=== PATIENT | male | born 1980 | race Caucasian/White ===

== ENCOUNTER 2021-10-19 06:58 | Emergency (ER) | payer MEDICARE, MEDICAID, SELFPAY ==
[2021-10-19 06:59] VITALS: BP 142/83; PULSE 90; RESP 18; TEMP 36.5; O2SAT 96; BMI 25.7
--- NOTE | 2021-10-19 07:43 | ED_ITS ---
HPI - Nausea/Vomiting/Diarrhea General Chief complaint: Nausea/Vomiting/Diarrhea Stated complaint: Vomiting Time Seen by Provider: 10/19/21 07:42 Source: patient Mode of arrival: ambulatory Limitations: no limitations History of Present Illness HPI Narrative: 41-year-old male came in for evaluation of nausea and vomiting. Symptoms started since yesterday after eating rice and chicken was served at the [employer] yesterday, patient's symptoms started about 30 minutes after eating the food patient not aware of anybody else got sick after eating the food, vomiting has been constant since yesterday, no fever, no diarrhea. Epigastric pain that is worsening with vomiting. Related Data Previous Rx's Medication Instructions Recorded omeprazole 20 mg capsule,delayed 20 mg PO BID 10 Days #20 cap 10/19/21 release ondansetron 4 mg disintegrating 4 mg PO Q8-12H PRN 4 Days #6 tab 10/19/21 tablet Allergies Allergy/AdvReac Type Severity Reaction Status Date / Time No Known Allergies [NKA] Allergy Mild NOT Unverified 02/28/20 15:28 APPLICABLE Review of Systems Review of Systems: All other systems are reviewed and are negative Constitutional: Reports as per HPI and Reports no additional constitutional complaints Eyes: Reports as per HPI and Reports no additional eye complaints Reports system reviewed and no additional complaints, except as documented Cardiovascular: Reports as per HPI and Reports no additional cardiovascular complaints Respiratory: Reports as per HPI and Reports no additional respiratory complaints Gastrointestinal: Reports as per HPI and Reports no additional gastrointestinal complaints Genitourinary: Reports no additional female genitourinary complaints Musculoskeletal: Reports no additional musculoskeletal complaints Skin/Breast: Reports system reviewed and no additional complaints, except as docu Psychiatric: Reports no additional psychiatric complaints Endocrine: Reports no additional endocrine complaints Hematologic/Lymphatic: Reports no additional hematologic/lymphatic complaints Allergic/Immunologic: Reports no additional allergic/immunologic complaints Reports system reviewed and no additional complaints, except as documented and Reports Abnormal speech present [facility] Past Medical History Medical History No known health problems Social History Social History Patient Tobacco Use Status: Never used Tobacco Use of substances other than those prescribed or required for medical reasons: No Advance Directives: Yes Advance Directives Information Provided: Yes Advance Directives on File: No Physical Exam Vital Signs: Vital Signs: Last Vital Signs Temp 98.5 F 10/19/21 11:16 Pulse 100 10/19/21 11:16 Resp 16 10/19/21 11:16 BP 138/77 10/19/21 11:16 Pulse Ox 97 10/19/21 11:16 BMI result Body Mass Index 25.7 Vital signs have been reviewed as appeared to be correct. Blood pressure normal. Heart rate normal. Respiration rate normal. Temperature normal. Oxygen saturation normal. Appearance: Alert. Oriented X3. No acute distress. Head: Normal external exam. Normocephalic. Atraumatic. No Sadler signs noted. No raccoon eyes noted Eyes: PERRLA. EOMI. Conjunctiva and sclera normal. Eyelids normal. ENT: TM's Normal. Pharynx normal. Uvula midline. Moist mucous membranes. No trismus noted. No drooling noted. No muffled voice noted. Neck: Normal inspection. Neck supple. FROM. No adenopathy. Thyroid Normal. No meningeal signs. No neck mass noted. CVS: Normal heart rate and rhythm. Heart sound normal. No murmurs noted. Pulses normal throughout. Respiratory: No respiratory distress. Painless inspiration. Breath sounds normal. No wheezes/rales/rhonchi noted. Chest nontender. No accessory muscle usage noted or decreased air movement noted. Abdomen: Soft, mild epigastric tenderness, no rebound tenderness, guarding. Bowel sounds normal in all 4 quadrants. No distention noted. No organomegaly noted. No visible injury noted. Back: No CVA tenderness. Full range of motion noted. Skin: Skin warm and dry. Normal skin color. Normal skin turgor. No rashes/lesions/lacerations noted. Extremities: No lower extremity edema. Extremities exhibit normal range of motion. Extremities nontender. Neuro: Oriented X 3. Cranial nerve exam: II-XII are grossly intact No motor deficit. No sensory deficit. Reflexes normal. Course Course Course Narrative: Assessment and plan. 41 years old male came in with nausea and vomiting after a food at [employer] today, no other sick contacts. Patient now has no nausea or vomiting, able to tolerate p.o. intake. Repeat abdominal exam shows no tenderness, no rebound tenderness. Slight leukocytosis likely secondary to food poisoning and vomiting. MDM - Nausea/Vomiting/Diarrhea Medical Records Attestation: I reviewed the patient's medical records. Lab Data Attestation: I reviewed the patient's lab results. Result diagrams: 10/19/21 08:07 10/19/21 08:07 Labs: Lab Results 10/19/21 10/19/21 10/19/21 Range/Units 08:07 08:07 11:32 WBC 12.3 H (4.8-10.8) X10*3/uL RBC 4.93 (4.60-5.80) X10*6/uL Hgb 15.6 (14.0-18.0) g/dl Hct 44.6 (42.0-52.0) % MCV 90.5 (80.0-98.0) fL MCH 31.6 (27.0-33.0) pg MCHC 35.0 (31.0-36.0) g/dl RDW 12.6 (11.0-16.0) % Plt Count 313 (160-400) X10*3/uL MPV 10.7 (9.4-12.4) fL Immature Gran % (Auto) 0.3 (0.0-0.4) % Neut % (Auto) 89.6 H (45-73) % Lymph % (Auto) 6.9 L (20-40) % [place] % (Auto) 3.0 (2-11) % Eos % (Auto) 0.0 (0-4) % Baso % (Auto) 0.2 (0-2) % Lymph # (Auto) 0.8 L (1.2-4.9) X10*3/uL [place] # (Auto) 0.4 (0.1-1.2) X10*3/uL Eos # (Auto) 0.0 (0.0-0.4) X10*3/uL Baso # (Auto) 0.0 (0.0-0.2) X10*3/uL Abs Immat Gran (auto) 0.04 H (0.00-0.03) X10*3/uL Absolute Neuts (auto) 11.0 H (2.0-8.3) x10*3/uL Absolute Nucleated RBC 0.000 (0.0-0.012) X10*3/uL Nucleated RBC % (auto) 0.0 (0.0-0.2) /100WBC Sodium 140 (135-145) mmol/L Potassium 4.5 (3.3-5.1) mmol/L Chloride 100 (96-108) mmol/L Carbon Dioxide 26 (22-29) mmol/L Anion Gap 19 (12-20) BUN 12 (9-16) mg/dL Creatinine 0.93 (0.5-1.4) mg/dL Estim Creat Clear Calc 86.6 Estimated GFR > 60 Random Glucose 138 H (60-115) mg/dL Calcium 10.5 H (8.4-10.2) mg/dL Total Bilirubin 0.7 (0.0-1.0) mg/dL Direct Bilirubin 0.2 (0.0-0.5) mg/dL AST 22 (5-37) U/L ALT 22 (0-40) U/L Alkaline Phosphatase 132 H (39-117) U/L Total Protein 8.6 H (6.5-8.0) g/dL Albumin 5.0 (3.5-5.0) g/dL Lipase 23 (8-78) U/L Urine Color YELLOW Urine Appearance CLEAR Urine pH 6.0 (5.0-8.0) Ur Specific [place] >= 1.030 H (1.005-1.025) Urine Protein 2+ H (NEG-TRACE) MG/DL Urine Glucose (UA) NEG (NEG) MG/DL Urine Ketones >=80 (NEG) MG/DL Urine Blood 1+ H (NEG) Urine Nitrite NEG (NEG) Ur Leukocyte Esterase NEG (NEG) Urine RBC 1-4 (0) /HPF Urine WBC 0 (0-4) /HPF Ur Squamous Epith Cells NONE /LPF Urine Bacteria NONE /LPF Urine Mucus 1+ /LPF Discharge Plan Discharge Clinical Impression: Food poisoning Patient Disposition: Home, Self-Care Instructions: Food Poisoning (ED) Prescriptions: New ondansetron 4 mg tablet,disintegrating 4 mg PO Q8-12H PRN (Reason: nausea and vomiting) 4 Days Qty: 6 0RF omeprazole 20 mg capsule,delayed release(DR/EC) 20 mg PO BID 10 Days Qty: 20 0RF Referrals: Physician,None [Primary Care Provider] -
[2021-10-19] MEDS: 0.9 % Sodium Chloride 1,000 ML 999 ML IV (08:10)
[2021-10-19 08:13] LABS: MANUAL DIFF FLAG NO
[2021-10-19] MEDS: Famotidine/PF 20 MG/2 ML VIAL IVPUSH (08:13)
[2021-10-19] MEDS: Magnesium Hydrox/Alum Hydrox 30 ML ORAL.SUSP PO (08:14)
[2021-10-19] MEDS: ondansetron HCL 4 MG/2 ML VIAL IVPUSH (08:14)
[2021-10-19 08:29] LABS: Basophils Percent Auto 0.2 % (0-2); Hematocrit 44.6 % (42.0-52.0); Hemoglobin 15.6 g/dl (14.0-18.0); Imm Gran Abs Auto 0.04 X10*3/uL (0.00-0.03); Imm Gran Pct Auto 0.3 % (0.0-0.4); Lymphocytes Absolute Auto 0.8 X10*3/uL (1.2-4.9); Lymphocytes Percent Auto 6.9 % (20-40); Mean Corpuscular Hemoglobin 31.6 pg (27.0-33.0); Mean Corpuscular Volume 90.5 fL (80.0-98.0); Mean Platelet Volume 10.7 fL (9.4-12.4); Monocytes Absolute Auto 0.4 X10*3/uL (0.1-1.2); Neutrophils Percent Auto 89.6 % (45-73); Platelet Count 313 X10*3/uL (160-400); Red Blood Count 4.93 X10*6/uL (4.60-5.80); Red Cell Distribution Width 12.6 % (11.0-16.0); White Blood Count 12.3 X10*3/uL (4.8-10.8)
[2021-10-19 08:40] LABS: Alanine Aminotransferase 22 U/L (0-40); Alkaline Phosphatase 132 U/L (39-117); Anion Gap 19 (12-20); Aspartate Amino Transferase 22 U/L (5-37); Bilirubin Direct 0.2 mg/dL (0.0-0.5); Bilirubin Total 0.7 mg/dL (0.0-1.0); Blood Urea Nitrogen 12 mg/dL (9-16); Calcium 10.5 mg/dL (8.4-10.2); Carbon Dioxide 26 mmol/L (22-29); Chloride 100 mmol/L (96-108); Creatinine Clr Calc Pharmacy 86.6; Estimated Glomerular Filt Rate > 60; Glucose Random 138 mg/dL (60-115); Lipase 23 U/L (8-78); Potassium 4.5 mmol/L (3.3-5.1); Sodium 140 mmol/L (135-145); Total Protein 8.6 g/dL (6.5-8.0)
--- NOTE | 2021-10-19 08:49 | PC.NURSE ---
pt has become agitated suddenly , at bedside explaining imaging he wants pt to have imaging as he was unresponsive on arrival. Pt is now alert and orientated and lucid. and wants to leave. He ripped out his IV and is wanting to leave, has clothing in black trash bag at bedside Phone given to him and he called his dad and he will be on his way. Pt is adamant about wanting to leave ama. Security and [employer] at bedside, pt requesting/given water.
[2021-10-19 11:16] VITALS: BP 138/77; PULSE 100; RESP 16; TEMP 36.9; O2SAT 97
[2021-10-19 11:39] LABS: Appearance Urine CLEAR; Color Urine YELLOW; Glucose Urine UA NEG (NEG); Leukocyte Esterase Urine NEG (NEG); Nitrite Urine NEG (NEG); Specific Gravity - Urine >= 1.030 (1.005-1.025); UACC Culture Trigger NO; Urine Blood 1+ (NEG); Urine Ketones >=80 MG/DL (NEG); Urine Protein 2+ MG/DL (NEG-TRACE)
[2021-10-19 11:54] LABS: WBC Urine 0 /HPF (0-4)
[2021-10-19 11:55] LABS: Mucus Urine 1+ /LPF
[2021-10-19 13:00] VITALS: BP 154/88; PULSE 70; RESP 18; TEMP 36.3; O2SAT 98
== END 2021-10-19 13:31 | disposition home or self-care (01) ==
PROVIDERS: Emergency Provider Emergency Medicine
DX: A05.9 Bacterial foodborne intoxication, unspecified (principal)
CPT/HCPCS: 36415; 80048; 80076; 81001; 83690; 85025; 96361; 96374; 96375; 99284; J2405

== ENCOUNTER 2021-10-20 14:17 | Emergency (ER) | payer MEDICARE, MEDICAID, SELFPAY ==
[2021-10-20 14:51] VITALS: BP 144/90; PULSE 78; RESP 18; TEMP 35.6; O2SAT 100; BMI 23.0
[2021-10-20 15:06] LABS: MANUAL DIFF FLAG NO
[2021-10-20 15:09] LABS: Basophils Percent Auto 0.3 % (0-2); Eosinophils Percent Auto 0.1 % (0-4); Hematocrit 44.9 % (42.0-52.0); Hemoglobin 15.5 g/dl (14.0-18.0); Imm Gran Abs Auto 0.04 X10*3/uL (0.00-0.03); Imm Gran Pct Auto 0.3 % (0.0-0.4); Lymphocytes Absolute Auto 1.3 X10*3/uL (1.2-4.9); Lymphocytes Percent Auto 11.6 % (20-40); Mean Corpuscular HGB Conc 34.5 g/dl (31.0-36.0); Mean Corpuscular Hemoglobin 31.6 pg (27.0-33.0); Mean Corpuscular Volume 91.4 fL (80.0-98.0); Mean Platelet Volume 10.3 fL (9.4-12.4); Monocytes Absolute Auto 0.5 X10*3/uL (0.1-1.2); Monocytes Percent Auto 4.5 % (2-11); Neutrophils Absolute Auto 9.5 x10*3/uL (2.0-8.3); Neutrophils Percent Auto 83.2 % (45-73); Platelet Count 303 X10*3/uL (160-400); Red Blood Count 4.91 X10*6/uL (4.60-5.80); Red Cell Distribution Width 12.6 % (11.0-16.0); White Blood Count 11.4 X10*3/uL (4.8-10.8)
[2021-10-20 15:24] LABS: Alanine Aminotransferase 27 U/L (0-40); Albumin Level 4.8 g/dL (3.5-5.0); Alkaline Phosphatase 121 U/L (39-117); Anion Gap 14 (12-20); Aspartate Amino Transferase 33 U/L (5-37); Bilirubin Direct 0.3 mg/dL (0.0-0.5); Bilirubin Total 0.7 mg/dL (0.0-1.0); Blood Urea Nitrogen 11 mg/dL (9-16); Carbon Dioxide 28 mmol/L (22-29); Chloride 102 mmol/L (96-108); Creatinine Clr Calc Pharmacy 66.7; Estimated Glomerular Filt Rate > 60; Glucose Random 172 mg/dL (60-115); Potassium 4.4 mmol/L (3.3-5.1); Sodium 140 mmol/L (135-145)
[2021-10-20 20:00] VITALS: BP 138/85; PULSE 72; RESP 16; O2SAT 98
--- NOTE | 2021-10-20 21:13 | ED.NAVMDI ---
HPI - Nausea/Vomiting/Diarrhea General Chief complaint: Nausea/Vomiting/Diarrhea Stated complaint: Vomiting Time Seen by Provider: 10/20/21 21:04 Source: patient Mode of arrival: ambulatory Limitations: no limitations History of Present Illness HPI Narrative: Patient comes to emergency room complaining of nausea and vomiting. Patient was seen here for the same reason. Today, when patient came to triage, patient was self inducing vomiting. Patient has fear chills, mild abdominal cramping, no diarrhea. Patient is known to have history of gastroparesis and cyclical vomiting. Related Data Previous Rx's Medication Instructions Recorded omeprazole 20 mg capsule,delayed 20 mg PO BID 10 Days #20 cap 10/19/21 release ondansetron 4 mg disintegrating 4 mg PO Q8-12H PRN 4 Days #6 tab 10/19/21 tablet metoclopramide HCl 5 mg tablet 5 mg PO DAILY PRN #10 tab 10/20/21 (Reglan) Allergies Allergy/AdvReac Type Severity Reaction Status Date / Time No Known Allergies [NKA] Allergy Mild NOT Unverified 02/28/20 15:28 APPLICABLE Review of Systems Review of Systems: Constitutional : No Weight loss, No Fever, No Chills, No Night Sweats, No Fatigue, No Malaise ENT/Mouth : No Hearing loss, No Ear Pain, No Nasal Congestion, No Sinus Pain, No Hoarseness, No sore throat, No Rhinorrhea, No Swallowing Difficulty Eyes: No Eye Pain, No Swelling, No Redness, No Foreign Body, No Discharge, No Vision Changes Cardiovascular : No Chest Pain, No SOB, No Dyspnea on Exertion, No Orthopnea, No Edema, No Palpitations Respiratory : No Cough, No Sputum, No Wheezing, No Smoke Exposure, No Dyspnea Gastrointestinal : Complaining of nausea and vomiting, No Diarrhea, No Constipation, No abdominal Pain, No Hematochezia, No Melena Genitourinary : no irregular bleeding, No Dysuria, No Urinary Frequency, No Hematuria, No Urinary Incontinence, No Urgency, No Flank Pain, No Urinary Flow Changes, No Hesitancy Musculoskeletal : No joint pain, No Myalgias, No Joint Swelling Skin : No Skin Lesions, No rash Neuro : No Weakness, No Numbness, No Paresthesias, No Loss of Consciousness, No Dizziness, No Headache Psych : No Anxiety/Panic, No Depression, No SI/HI/AH/VH, No Social Issues, Heme/Lymph: No Bruising, No Bleeding,No Lymphadenopathy Endocrine : No Polyuria, No Polydipsia, No Temperature Intolerance [facility] Past Medical History Medical History (Updated 10/20/21 @ 23:06 by Regla Cotto MD) Cyclical vomiting Gastroparesis No known health problems Social History Social History Patient Tobacco Use Status: Never used Tobacco Advance Directives: No Advance Directives Information Provided: No Physical Exam Vital Signs: Vital Signs: Last Vital Signs Temp 98.3 F 10/20/21 21:57 Pulse 75 10/20/21 21:57 Resp 18 10/20/21 21:57 BP 138/85 10/20/21 21:57 Pulse Ox 99 10/20/21 21:57 BMI result Body Mass Index 23.0 Const: Other: Appearance: Alert. Oriented X3. No acute distress. Well-appearing Eyes: Pupils equal, round and reactive to light. ENT: Pharynx normal. Neck: Normal inspection. Neck supple. No lymph nodes noted. No crepitus CVS: Normal heart rate and rhythm. Pulses normal. Normal S1 and S2 Respiratory: No respiratory distress. Breath sounds normal. No Wheezing. No rales Abdomen: Soft and nontender. No rigidity. No distention. Skin: Skin warm and dry. Normal skin color. Normal skin turgor. Extremities: No lower extremity edema. No Lacerations. No Rash Neuro: Oriented X 3. No motor deficit. No sensory deficit. Moving all extremities. No slurred speech. CN 2 through 12 grossly intact Psych: calm, cooperative, normal affect Course Course Course Narrative: Patient's white blood cell count is improving from yesterday, glucose 172. Patient getting IV fluids, Phenergan, Pepcid Patient has not had any further episodes of vomiting, resting comfortably MDM - Nausea/Vomiting/Diarrhea Lab Data Result diagrams: 10/20/21 15:02 10/20/21 15:02 Labs: Lab Results 10/20/21 10/20/21 Range/Units 15:02 15:02 WBC 11.4 H (4.8-10.8) X10*3/uL RBC 4.91 (4.60-5.80) X10*6/uL Hgb 15.5 (14.0-18.0) g/dl Hct 44.9 (42.0-52.0) % MCV 91.4 (80.0-98.0) fL MCH 31.6 (27.0-33.0) pg MCHC 34.5 (31.0-36.0) g/dl RDW 12.6 (11.0-16.0) % Plt Count 303 (160-400) X10*3/uL MPV 10.3 (9.4-12.4) fL Immature Gran % (Auto) 0.3 (0.0-0.4) % Neut % (Auto) 83.2 H (45-73) % Lymph % (Auto) 11.6 L (20-40) % [place] % (Auto) 4.5 (2-11) % Eos % (Auto) 0.1 (0-4) % Baso % (Auto) 0.3 (0-2) % Lymph # (Auto) 1.3 (1.2-4.9) X10*3/uL [place] # (Auto) 0.5 (0.1-1.2) X10*3/uL Eos # (Auto) 0.0 (0.0-0.4) X10*3/uL Baso # (Auto) 0.0 (0.0-0.2) X10*3/uL Abs Immat Gran (auto) 0.04 H (0.00-0.03) X10*3/uL Absolute Neuts (auto) 9.5 H (2.0-8.3) x10*3/uL Absolute Nucleated RBC 0.000 (0.0-0.012) X10*3/uL Nucleated RBC % (auto) 0.0 (0.0-0.2) /100WBC Sodium 140 (135-145) mmol/L Potassium 4.4 (3.3-5.1) mmol/L Chloride 102 (96-108) mmol/L Carbon Dioxide 28 (22-29) mmol/L Anion Gap 14 (12-20) BUN 11 (9-16) mg/dL Creatinine 1.16 (0.5-1.4) mg/dL Estim Creat Clear Calc 66.7 Estimated GFR > 60 Random Glucose 172 H (60-115) mg/dL Calcium 10.0 (8.4-10.2) mg/dL Total Bilirubin 0.7 (0.0-1.0) mg/dL Direct Bilirubin 0.3 (0.0-0.5) mg/dL AST 33 D (5-37) U/L ALT 27 (0-40) U/L Alkaline Phosphatase 121 H (39-117) U/L Total Protein 8.0 (6.5-8.0) g/dL Albumin 4.8 (3.5-5.0) g/dL Discharge Plan Discharge Clinical Impression: Vomiting Patient Disposition: Home, Self-Care Instructions: Acute Nausea and Vomiting (ED) Additional Instructions: Please follow-up with your primary care physician tomorrow. If you have any worsening or new symptoms, please return to the emergency room or call 911 Prescriptions: New metoclopramide HCl [Reglan] 5 mg tablet 5 mg PO DAILY PRN (Reason: nausea and vomiting) Qty: 10 0RF No Action ondansetron 4 mg tablet,disintegrating 4 mg PO Q8-12H PRN (Reason: nausea and vomiting) 4 Days Qty: 6 0RF omeprazole 20 mg capsule,delayed release(DR/EC) 20 mg PO BID 10 Days Qty: 20 0RF
[2021-10-20 21:57] VITALS: BP 138/85; PULSE 75; RESP 18; TEMP 36.8; O2SAT 99
[2021-10-20] MEDS: 0.9 % Sodium Chloride 1,000 ML 999 ML IVCONT (22:01)
[2021-10-20] MEDS: Famotidine/PF 20 MG/2 ML VIAL IVPUSH (22:17)
[2021-10-20 22:58] LABS: Appearance Urine CLOUDY; Color Urine YELLOW; Glucose Urine UA NEG (NEG); Leukocyte Esterase Urine NEG (NEG); Nitrite Urine NEG (NEG); Urine Blood NEG (NEG); Urine Ketones 5 MG/DL (NEG); Urine Protein TRACE MG/DL (NEG-TRACE)
[2021-10-20 23:14] LABS: Amphetamine Screen Urine Not Detected (Not Detect); Barbiturates, Urine Not Detected (Not Detect); Benzodiazepines Screen Urine Not Detected (Not Detect); Cannabinoid Screen Urine POSITIVE (Not Detect); Cocaine Screen Urine Not Detected (Not Detect); Fentanyl, urine Not Detected (Not Detect); Opiate Screen Urine Not Detected (Not Detect); Phencyclidine Screen Urine Not Detected (Not Detect)
[2021-10-20 23:32] VITALS: BP 138/78; PULSE 71; RESP 16; O2SAT 99
== END 2021-10-20 23:33 | disposition home or self-care (01) ==
PROVIDERS: Emergency Provider Emergency Medicine
DX: R11.2 Nausea with vomiting, unspecified (principal); R19.7 Diarrhea, unspecified; Z79.899 Other long term (current) drug therapy
CPT/HCPCS: 36415; 80053; 80307; 81003; 82248; 85025; 96361; 96374; 96375; 99284; J2550

== ENCOUNTER 2021-11-11 21:27 | Emergency (ER) | payer MEDICARE, MEDICAID, SELFPAY ==
[2021-11-11 21:36] VITALS: BP 147/91; PULSE 98; RESP 18; TEMP 35.9; O2SAT 100; BMI 27.4
[2021-11-11] MEDS: Ondansetron ODT 4 MG TAB.RAPDIS TRANSLINGU (21:44)
[2021-11-11 22:07] LABS: Basophils Percent Auto 0.2 % (0-2); Eosinophils Percent Auto 0.1 % (0-4); Hematocrit 45.2 % (42.0-52.0); Hemoglobin 15.7 g/dl (14.0-18.0); Imm Gran Abs Auto 0.06 X10*3/uL (0.00-0.03); Imm Gran Pct Auto 0.4 % (0.0-0.4); Lymphocytes Absolute Auto 0.9 X10*3/uL (1.2-4.9); Lymphocytes Percent Auto 5.3 % (20-40); MANUAL DIFF FLAG SCAN; Mean Corpuscular HGB Conc 34.7 g/dl (31.0-36.0); Mean Corpuscular Hemoglobin 31.5 pg (27.0-33.0); Mean Corpuscular Volume 90.8 fL (80.0-98.0); Mean Platelet Volume 10.3 fL (9.4-12.4); Monocytes Absolute Auto 0.5 X10*3/uL (0.1-1.2); Monocytes Percent Auto 2.7 % (2-11); Neutrophils Absolute Auto 15.4 x10*3/uL (2.0-8.3); Neutrophils Percent Auto 91.3 % (45-73); Platelet Count 296 X10*3/uL (160-400); Red Blood Count 4.98 X10*6/uL (4.60-5.80); Red Cell Distribution Width 12.6 % (11.0-16.0); SCAN SMEAR FLAG 1; White Blood Count 16.9 X10*3/uL (4.8-10.8)
[2021-11-11 22:20] VITALS: BP 178/119; PULSE 91; O2SAT 98
[2021-11-11 22:22] LABS: Ethanol < 10 mg/dL
[2021-11-11 22:26] LABS: SLIDE REVIEW VERIFIED
[2021-11-11 22:35] LABS: Alanine Aminotransferase 24 U/L (0-40); Albumin Level 5.2 g/dL (3.5-5.0); Alkaline Phosphatase 133 U/L (39-117); Anion Gap 16 (12-20); Aspartate Amino Transferase 19 U/L (5-37); Bilirubin Direct 0.2 mg/dL (0.0-0.5); Bilirubin Total 0.6 mg/dL (0.0-1.0); Blood Urea Nitrogen 10 mg/dL (9-16); Calcium 10.8 mg/dL (8.4-10.2); Carbon Dioxide 28 mmol/L (22-29); Chloride 105 mmol/L (96-108); Creatinine Clr Calc Pharmacy 84.4; Estimated Glomerular Filt Rate > 60; Glucose Random 169 mg/dL (60-115); Potassium 4.3 mmol/L (3.3-5.1); Sodium 145 mmol/L (135-145); Total Protein 8.8 g/dL (6.5-8.0)
--- NOTE | 2021-11-11 22:42 | ED_ITS ---
HPI - General Adult General Chief complaint: Nausea/Vomiting/Diarrhea Stated complaint: vomiting x5 hrs Time Seen by Provider: 11/11/21 22:23 Source: patient Limitations: no limitations History of Present Illness HPI narrative: This is a 41-year-old male with history of gastroparesis, who had been at work today any lunch and then around 04:00 o'clock developed vomiting repeatedly. Patient has had similar symptoms in the past. Denies any diarrhea. He has not had any known fever. He did have some mild discomfort with urination earlier. He does use marijuana, denies other drugs. Patient is a somewhat limited/poor historian at this time due to his dry heaves Related Data Previous Rx's Medication Instructions Recorded omeprazole 20 mg capsule,delayed 20 mg PO BID 10 Days #20 cap 10/19/21 release ondansetron 4 mg disintegrating 4 mg PO Q8-12H PRN 4 Days #6 tab 10/19/21 tablet metoclopramide HCl 5 mg tablet 5 mg PO DAILY PRN #10 tab 10/20/21 (Reglan) ondansetron 4 mg disintegrating 4 mg PO Q6H PRN #10 tab 11/12/21 tablet Allergies Allergy/AdvReac Type Severity Reaction Status Date / Time No Known Allergies [NKA] Allergy Mild NOT Unverified 02/28/20 15:28 APPLICABLE Review of Systems Review of Systems: Yes Other (Unobtainable due to clinical condition) Constitutional: Constitutional: Denies fever(s) and Denies headache(s) ENT: Denies headache(s) Cardiovascular: Cardiovascular: Reports no additional cardiovascular complaints Respiratory: Respiratory: Reports no additional respiratory complaints Gastrointestinal: Gastrointestinal: Reports nausea and Reports vomiting Genitourinary: Genitourinary: Reports dysuria Neurologic: Denies headache(s) [facility] Past Medical History Medical History (Updated 11/12/21 @ 01:24 by Donavan Alex MD) Cyclical vomiting Gastroparesis No known health problems Social History Social History Alcohol intake: never Patient Tobacco Use Status: Never used Tobacco Use of substances other than those prescribed or required for medical reasons: Yes Substance Use Type: Marijuana Substance Use Frequency: Occasionally Advance Directives: No Advance Directives Information Provided: No Physical Exam ED Vital Signs: Vital Signs - 24 hr 11/11/21 21:36 11/11/21 22:20 Temperature 96.6 F L Pulse Rate 98 91 Respiratory Rate 18 Blood Pressure 147/91 H 178/119 H Pulse Oximetry 100 98 BMI result Body Mass Index 27.4 Const Other: Patient dry heaving, intermittently seems somnolent (appears somewhat h istrionic). Despite having emesis bag in front of him and being urged to use it, patient vomits a small amount into the hospital blanket General: no acute distress Orientation/consciousness: patient oriented x3 HENMT Head: Yes normal to inspection General nose exam: Normal external nose present Mouth: moist mucous membranes Throat: Yes posterior oropharynx normal, Yes tonsils normal and Yes uvula midline Eyes Eyelids: Yes eyelids normal Conjunctivae: conjunctivae normal Pupils: Equal, round and reactive pupils present Neck Neck: Yes supple Resp Effort & Inspection: normal respiratory effort Auscultation: clear to auscultation bilaterally Cardio Rate: regular rate Rhythm: regular rhythm Heart sounds: S1 normal heart sound present, S2 normal heart sound present, no gallops, no murmurs and no rubs GI Inspection: No distended Palpation (GI): Soft to palpation and nontender Auscultation: normal bowel sounds Skin General skin exam: other (Warm and dry) Neuro General: patient oriented x3 and CN's II-XI intact bilaterally Cranial nerves: Yes Equal, round and reactive pupils present Extrem General: Yes no pedal edema Psych Affect: normal affect Attitude: cooperative Medical Decision Making [facility] Narrative Medical decision making narrative: Patient with repetitive vomiting/dry heaving, has had similar symptoms previously. Patient does use marijuana. Patient likely has cyclic vomiting syndrome. Patient improved with droperidol, Ativan, normal saline IV bolus. Patient had tried ondansetron at home and here in the ED prior to my evaluation. Patient without significant abdominal tenderness. Will prescribe additional Zofran, and the patient is advised not to use marijuana Lab Data Lab results reviewed: Yes I reviewed the patient's lab results. Result diagrams: 11/11/21 21:57 11/11/21 21:57 Labs: Lab Results 11/11/21 11/11/21 11/11/21 Range/Units 21:57 21:57 21:57 WBC 16.9 H (4.8-10.8) X10*3/uL RBC 4.98 (4.60-5.80) X10*6/uL Hgb 15.7 (14.0-18.0) g/dl Hct 45.2 (42.0-52.0) % MCV 90.8 (80.0-98.0) fL MCH 31.5 (27.0-33.0) pg MCHC 34.7 (31.0-36.0) g/dl RDW 12.6 (11.0-16.0) % Plt Count 296 (160-400) X10*3/uL MPV 10.3 (9.4-12.4) fL Immature Gran % (Auto) 0.4 (0.0-0.4) % Neut % (Auto) 91.3 H (45-73) % Lymph % (Auto) 5.3 L (20-40) % [place] % (Auto) 2.7 (2-11) % Eos % (Auto) 0.1 (0-4) % Baso % (Auto) 0.2 (0-2) % Lymph # (Auto) 0.9 L (1.2-4.9) X10*3/uL [place] # (Auto) 0.5 (0.1-1.2) X10*3/uL Eos # (Auto) 0.0 (0.0-0.4) X10*3/uL Baso # (Auto) 0.0 (0.0-0.2) X10*3/uL Abs Immat Gran (auto) 0.06 H (0.00-0.03) X10*3/uL Absolute Neuts (auto) 15.4 H (2.0-8.3) x10*3/uL Absolute Nucleated RBC 0.000 (0.0-0.012) X10*3/uL Nucleated RBC % (auto) 0.0 (0.0-0.2) /100WBC Smear Tech's Comments VERIFIED Sodium 145 (135-145) mmol/L Potassium 4.3 (3.3-5.1) mmol/L Chloride 105 (96-108) mmol/L Carbon Dioxide 28 (22-29) mmol/L Anion Gap 16 (12-20) BUN 10 (9-16) mg/dL Creatinine 1.04 (0.5-1.4) mg/dL Estim Creat Clear Calc 84.4 Estimated GFR > 60 Random Glucose 169 H (60-115) mg/dL Calcium 10.8 H D (8.4-10.2) mg/dL Total Bilirubin 0.6 (0.0-1.0) mg/dL Direct Bilirubin 0.2 (0.0-0.5) mg/dL AST 19 D (5-37) U/L ALT 24 (0-40) U/L Alkaline Phosphatase 133 H (39-117) U/L Total Protein 8.8 H (6.5-8.0) g/dL Albumin 5.2 H (3.5-5.0) g/dL Urine Color Urine Appearance Urine pH (5.0-8.0) Ur Specific [place] (1.005-1.025) Urine Protein (NEG-TRACE) MG/DL Urine Glucose (UA) (NEG) MG/DL Urine Ketones (NEG) MG/DL Urine Blood (NEG) Urine Nitrite (NEG) Ur Leukocyte Esterase (NEG) Urine RBC (0) /HPF Urine WBC (0-4) /HPF Ur Squamous Epith Cells /LPF Urine Bacteria /LPF Urine Opiates Screen (Not Detect) Urine Fentanyl Screen (Not Detect) Ur Barbiturates Screen (Not Detect) Ur Phencyclidine Scrn (Not Detect) Ur Amphetamines Screen (Not Detect) U Benzodiazepines Scrn (Not Detect) Urine Cocaine Screen (Not Detect) U Marijuana (THC) Screen (Not Detect) Ethyl Alcohol < 10 mg/dL 11/12/21 11/12/21 Range/Units 00:37 00:37 WBC (4.8-10.8) X10*3/uL RBC (4.60-5.80) X10*6/uL Hgb (14.0-18.0) g/dl Hct (42.0-52.0) % MCV (80.0-98.0) fL MCH (27.0-33.0) pg MCHC (31.0-36.0) g/dl RDW (11.0-16.0) % Plt Count (160-400) X10*3/uL MPV (9.4-12.4) fL Immature Gran % (Auto) (0.0-0.4) % Neut % (Auto) (45-73) % Lymph % (Auto) (20-40) % [place] % (Auto) (2-11) % Eos % (Auto) (0-4) % Baso % (Auto) (0-2) % Lymph # (Auto) (1.2-4.9) X10*3/uL [place] # (Auto) (0.1-1.2) X10*3/uL Eos # (Auto) (0.0-0.4) X10*3/uL Baso # (Auto) (0.0-0.2) X10*3/uL Abs Immat Gran (auto) (0.00-0.03) X10*3/uL Absolute Neuts (auto) (2.0-8.3) x10*3/uL Absolute Nucleated RBC (0.0-0.012) X10*3/uL Nucleated RBC % (auto) (0.0-0.2) /100WBC Smear Tech's Comments Sodium (135-145) mmol/L Potassium (3.3-5.1) mmol/L Chloride (96-108) mmol/L Carbon Dioxide (22-29) mmol/L Anion Gap (12-20) BUN (9-16) mg/dL Creatinine (0.5-1.4) mg/dL Estim Creat Clear Calc Estimated GFR Random Glucose (60-115) mg/dL Calcium (8.4-10.2) mg/dL Total Bilirubin (0.0-1.0) mg/dL Direct Bilirubin (0.0-0.5) mg/dL AST (5-37) U/L ALT (0-40) U/L Alkaline Phosphatase (39-117) U/L Total Protein (6.5-8.0) g/dL Albumin (3.5-5.0) g/dL Urine Color YELLOW Urine Appearance HAZY Urine pH 6.5 (5.0-8.0) Ur Specific [place] >= 1.030 H (1.005-1.025) Urine Protein 2+ H (NEG-TRACE) MG/DL Urine Glucose (UA) NEG (NEG) MG/DL Urine Ketones >=80 (NEG) MG/DL Urine Blood TRACE (NEG) Urine Nitrite NEG (NEG) Ur Leukocyte Esterase TRACE H (NEG) Urine RBC 0-2 (0) /HPF Urine WBC 50-75 H (0-4) /HPF Ur Squamous Epith Cells NONE /LPF Urine Bacteria TRACE /LPF Urine Opiates Screen Not Detected (Not Detect) Urine Fentanyl Screen Not Detected (Not Detect) Ur Barbiturates Screen Not Detected (Not Detect) Ur Phencyclidine Scrn Not Detected (Not Detect) Ur Amphetamines Screen Not Detected (Not Detect) U Benzodiazepines Scrn Not Detected (Not Detect) Urine Cocaine Screen POSITIVE H (Not Detect) U Marijuana (THC) Screen POSITIVE H (Not Detect) Ethyl Alcohol mg/dL Discharge Plan Discharge Clinical Impression: Vomiting, Cyclic vomiting syndrome Patient Disposition: Home, Self-Care Instructions: Acute Nausea and Vomiting (ED) Additional Instructions: Do not use marijuana, as in some people it can cause severe vomiting syndromes such as what you appear to have. Use ondansetron as prescribed for nausea. Drink clear liquids a little bit of time and advance to light foods such as bana cosme, saltines, steamed rice, as tolerated Prescriptions: New ondansetron 4 mg tablet,disintegrating 4 mg PO Q6H PRN (Reason: nausea and vomiting) Qty: 10 0RF No Action metoclopramide HCl [Reglan] 5 mg tablet 5 mg PO DAILY PRN (Reason: nausea and vomiting) Qty: 10 0RF ondansetron 4 mg tablet,disintegrating 4 mg PO Q8-12H PRN (Reason: nausea and vomiting) 4 Days Qty: 6 0RF omeprazole 20 mg capsule,delayed release(DR/EC) 20 mg PO BID 10 Days Qty: 20 0RF Interventions: ED Discharge Assessment Last Done: 11/12/21 01:34 Discharge Date/Time: 11/12/21 01:35
[2021-11-11] MEDS: LORazepam 2 MG/ML VIAL 1 MG IVPUSH (22:44)
[2021-11-11] MEDS: 0.9 % Sodium Chloride 1,000 ML 999 ML IV (22:47)
[2021-11-12 00:44] LABS: Appearance Urine HAZY; Color Urine YELLOW; Glucose Urine UA NEG (NEG); Leukocyte Esterase Urine TRACE (NEG); Nitrite Urine NEG (NEG); PH 6.5 (5.0-8.0); Specific Gravity - Urine >= 1.030 (1.005-1.025); UACC Culture Trigger NO; Urine Blood TRACE (NEG); Urine Ketones >=80 MG/DL (NEG); Urine Protein 2+ MG/DL (NEG-TRACE)
[2021-11-12 01:02] LABS: Bacteria Urine TRACE /LPF; RBC Urine 0-2 /HPF (0); UACC CULT YES; WBC Urine 50-75 /HPF (0-4)
[2021-11-12 01:44] LABS: Amphetamine Screen Urine Not Detected (Not Detect); Barbiturates, Urine Not Detected (Not Detect); Benzodiazepines Screen Urine Not Detected (Not Detect); Cannabinoid Screen Urine POSITIVE (Not Detect); Cocaine Screen Urine POSITIVE (Not Detect); Fentanyl, urine Not Detected (Not Detect); Opiate Screen Urine Not Detected (Not Detect); Phencyclidine Screen Urine Not Detected (Not Detect)
== END 2021-11-12 01:35 | disposition home or self-care (01) ==
PROVIDERS: Emergency Provider Emergency Medicine
DX: R11.15 Cyclical vomiting syndrome unrelated to migraine (principal); F12.90 Cannabis use, unspecified, uncomplicated
CPT/HCPCS: 36415; 80053; 80076; 80307; 81001; 82077; 82248; 85025; 87086; 96361; 96374; 96375; 99284; J1790; J2060

== ENCOUNTER 2021-11-13 15:53 | Emergency (ER) | payer MEDICARE, MEDICAID, SELFPAY ==
[2021-11-13 16:05] VITALS: BP 112/72; BP 147/83; PULSE 65; PULSE 74; RESP 16; TEMP 36.8; O2SAT 100; O2SAT 99; BMI 23.4
--- NOTE | 2021-11-13 16:16 | ED_ITS ---
HPI - Nausea/Vomiting/Diarrhea General Chief complaint: Nausea/Vomiting/Diarrhea Stated complaint: vomiting blood Time Seen by Provider: 11/13/21 16:15 Source: patient Mode of arrival: EMS Limitations: no limitations History of Present Illness HPI Narrative: Patient receives marijuana induced cyclic vomiting syndrome been here multiple times for same was here on 11/11 for same treated with IV fluids and IV antie metics comes back again for continuation of the vomiting unable to eat or drink much fluids and now complaining of bright red streaking of blood in the end of the vomitus days. No blood clot no coffee colored vomiting no melena patient also complaining of yellowish discharge from the penis for last 3 days history of STD when he was 17. Denies any history of HIV exposure. No fever no chills patient does have epigastric abdominal pain patient has not seen any gasoline finisher in the past patient smoked marijuana 3 days ago Related Data Previous Rx's Medication Instructions Recorded omeprazole 20 mg capsule,delayed 20 mg PO BID 10 Days #20 cap 10/19/21 release ondansetron 4 mg disintegrating 4 mg PO Q8-12H PRN 4 Days #6 tab 10/19/21 tablet metoclopramide HCl 5 mg tablet 5 mg PO DAILY PRN #10 tab 10/20/21 (Reglan) ondansetron 4 mg disintegrating 4 mg PO Q6H PRN #10 tab 11/12/21 tablet doxycycline hyclate 100 mg tablet 100 mg PO BID #14 tab 11/13/21 lorazepam 1 mg tablet (Ativan) 1 mg PO TID PRN #14 tab 11/13/21 metronidazole 500 mg tablet 500 mg PO BID 7 Days #14 tab 11/13/21 omeprazole 40 mg capsule,delayed 40 mg PO DAILY #20 cap 11/13/21 release Allergies Allergy/AdvReac Type Severity Reaction Status Date / Time No Known Allergies [NKA] Allergy Mild NOT Unverified 02/28/20 15:28 APPLICABLE Review of Systems Review of Systems: Yes all other systems are reviewed and are negative PMFSH Past Medical History Medical History Cyclical vomiting Gastroparesis No known health problems Social History Social History Alcohol intake: never Patient Tobacco Use Status: Never used Tobacco Use of substances other than those prescribed or required for medical reasons: Yes Substance Use Type: Marijuana Advance Directives: No Advance Directives Information Provided: No Physical Exam Vital Signs: Vital Signs: Last Vital Signs Temp 98.5 F 11/13/21 18:35 Pulse 83 11/13/21 18:35 Resp 18 11/13/21 18:35 BP 122/71 11/13/21 18:35 Pulse Ox 98 11/13/21 18:35 BMI result Body Mass Index 23.4 Appearance: Alert. Oriented X3. No acute distress. Eyes: No pallor or icterus ENT: Pharynx normal. Oral Mucosa dry Neck: Normal inspection. Neck supple. CVS: Normal heart rate and rhythm. Pulses normal. Respiratory: No respiratory distress. Equal air entry bilateral, no wheezing/rales/rhonchi Abdomen: Soft , mild epigastric tenderness no rebound tenderness or guarding Bowel sounds are present, no mass palpable, no CVA tenderness : Purulent discharge from the penis no rash testicles normal Skin: Skin warm and dry. Normal skin color. Normal skin turgor. Extremities: No lower extremity edema. No calf tenderness Neuro: Oriented X 3. No motor deficit. MDM - Nausea/Vomiting/Diarrhea MDM Narrative Medical decision making narrative: Patient has cyclic vomiting syndrome felt better after IV hydration and medications able to take p.o. fluids will discharge patient home Lab Data Attestation: I reviewed the patient's lab results. Result diagrams: 11/13/21 16:38 11/13/21 16:38 Labs: Lab Results 11/13/21 11/13/21 11/13/21 Range/Units 16:07 16:38 16:38 WBC 14.1 H (4.8-10.8) X10*3/uL RBC 5.12 (4.60-5.80) X10*6/uL Hgb 16.0 (14.0-18.0) g/dl Hct 45.1 (42.0-52.0) % MCV 88.1 (80.0-98.0) fL MCH 31.3 (27.0-33.0) pg MCHC 35.5 (31.0-36.0) g/dl RDW 12.4 (11.0-16.0) % Plt Count 290 (160-400) X10*3/uL MPV 10.1 (9.4-12.4) fL Immature Gran % (Auto) 0.4 (0.0-0.4) % Neut % (Auto) 83.7 H (45-73) % Lymph % (Auto) 10.2 L (20-40) % [place] % (Auto) 5.5 (2-11) % Eos % (Auto) 0.1 (0-4) % Baso % (Auto) 0.1 (0-2) % Lymph # (Auto) 1.4 (1.2-4.9) X10*3/uL [place] # (Auto) 0.8 (0.1-1.2) X10*3/uL Eos # (Auto) 0.0 (0.0-0.4) X10*3/uL Baso # (Auto) 0.0 (0.0-0.2) X10*3/uL Abs Immat Gran (auto) 0.05 H (0.00-0.03) X10*3/uL Absolute Neuts (auto) 11.8 H (2.0-8.3) x10*3/uL Absolute Nucleated RBC 0.000 (0.0-0.012) X10*3/uL Nucleated RBC % (auto) 0.0 (0.0-0.2) /100WBC Sodium 137 (135-145) mmol/L Potassium 3.2 L D (3.3-5.1) mmol/L Chloride 98 (96-108) mmol/L Carbon Dioxide 24 (22-29) mmol/L Anion Gap 18 (12-20) BUN 12 (9-16) mg/dL Creatinine 0.91 (0.5-1.4) mg/dL Estim Creat Clear Calc 88.5 Estimated GFR > 60 POC Glucose 131 H (60-115) mg/dL Random Glucose 121 H (60-115) mg/dL Calcium 10.2 (8.4-10.2) mg/dL Total Bilirubin 1.3 H (0.0-1.0) mg/dL AST 23 (5-37) U/L ALT 24 (0-40) U/L Alkaline Phosphatase 121 H (39-117) U/L Total Protein 8.0 (6.5-8.0) g/dL Albumin 4.8 (3.5-5.0) g/dL Urine Color Urine Appearance Urine pH (5.0-8.0) Ur Specific Victor (1.005-1.025) Urine Protein (NEG-TRACE) MG/DL Urine Glucose (UA) (NEG) MG/DL Urine Ketones (NEG) MG/DL Urine Blood (NEG) Urine Nitrite (NEG) Ur Leukocyte Esterase (NEG) Urine RBC (0) /HPF Urine WBC (0-4) /HPF Ur Squamous Epith Cells /LPF Urine Bacteria /LPF 11/13/21 Range/Units 17:52 WBC (4.8-10.8) X10*3/uL RBC (4.60-5.80) X10*6/uL Hgb (14.0-18.0) g/dl Hct (42.0-52.0) % MCV (80.0-98.0) fL MCH (27.0-33.0) pg MCHC (31.0-36.0) g/dl RDW (11.0-16.0) % Plt Count (160-400) X10*3/uL MPV (9.4-12.4) fL Immature Gran % (Auto) (0.0-0.4) % Neut % (Auto) (45-73) % Lymph % (Auto) (20-40) % [place] % (Auto) (2-11) % Eos % (Auto) (0-4) % Baso % (Auto) (0-2) % Lymph # (Auto) (1.2-4.9) X10*3/uL [place] # (Auto) (0.1-1.2) X10*3/uL Eos # (Auto) (0.0-0.4) X10*3/uL Baso # (Auto) (0.0-0.2) X10*3/uL Abs Immat Gran (auto) (0.00-0.03) X10*3/uL Absolute Neuts (auto) (2.0-8.3) x10*3/uL Absolute Nucleated RBC (0.0-0.012) X10*3/uL Nucleated RBC % (auto) (0.0-0.2) /100WBC Sodium (135-145) mmol/L Potassium (3.3-5.1) mmol/L Chloride (96-108) mmol/L Carbon Dioxide (22-29) mmol/L Anion Gap (12-20) BUN (9-16) mg/dL Creatinine (0.5-1.4) mg/dL Estim Creat Clear Calc Estimated GFR POC Glucose (60-115) mg/dL Random Glucose (60-115) mg/dL Calcium (8.4-10.2) mg/dL Total Bilirubin (0.0-1.0) mg/dL AST (5-37) U/L ALT (0-40) U/L Alkaline Phosphatase (39-117) U/L Total Protein (6.5-8.0) g/dL Albumin (3.5-5.0) g/dL Urine Color YELLOW Urine Appearance HAZY Urine pH 7.0 (5.0-8.0) Ur Specific Victor 1.010 (1.005-1.025) Urine Protein 1+ H (NEG-TRACE) MG/DL Urine Glucose (UA) NEG (NEG) MG/DL Urine Ketones >=80 (NEG) MG/DL Urine Blood TRACE (NEG) Urine Nitrite NEG (NEG) Ur Leukocyte Esterase 1+ H (NEG) Urine RBC 0-2 (0) /HPF Urine WBC 1-4 (0-4) /HPF Ur Squamous Epith Cells NONE /LPF Urine Bacteria 2+ /LPF Discharge Plan Discharge Clinical Impression: Cyclic vomiting syndrome, Gastritis, Acute gonorrhea of lower genitourinary tract Patient Disposition: Home, Self-Care Instructions: Gastritis (ED), Gonorrhea (ED), Cyclic Vomiting Syndrome (ED) Additional Instructions: Stop using marijuana Take medication as prescribed Follow-up with gasoline finisher Sexual precautions advised Prescriptions: New lorazepam [Ativan] 1 mg tablet 1 mg PO TID PRN (Reason: nausea and vomiting) Qty: 14 0RF metronidazole 500 mg tablet 500 mg PO BID 7 Days Qty: 14 0RF doxycycline hyclate 100 mg tablet 100 mg PO BID Qty: 14 0RF omeprazole 40 mg capsule,delayed release(DR/EC) 40 mg PO DAILY Qty: 20 0RF No Action metoclopramide HCl [Reglan] 5 mg tablet 5 mg PO DAILY PRN (Reason: nausea and vomiting) Qty: 10 0RF ondansetron 4 mg tablet,disintegrating 4 mg PO Q6H PRN (Reason: nausea and vomiting) Qty: 10 0RF ondansetron 4 mg tablet,disintegrating 4 mg PO Q8-12H PRN (Reason: nausea and vomiting) 4 Days Qty: 6 0RF omeprazole 20 mg capsule,delayed release(DR/EC) 20 mg PO BID 10 Days Qty: 20 0RF Referrals: Blanche Mcmillan MD [Physician] - 1 week Interventions: ED Discharge Assessment Last Done: 11/13/21 20:55 Discharge Date/Time: 11/13/21 20:55
[2021-11-13 16:42] LABS: MANUAL DIFF FLAG NO
[2021-11-13 16:44] LABS: Basophils Percent Auto 0.1 % (0-2); Eosinophils Percent Auto 0.1 % (0-4); Hematocrit 45.1 % (42.0-52.0); Imm Gran Abs Auto 0.05 X10*3/uL (0.00-0.03); Imm Gran Pct Auto 0.4 % (0.0-0.4); Lymphocytes Absolute Auto 1.4 X10*3/uL (1.2-4.9); Lymphocytes Percent Auto 10.2 % (20-40); Mean Corpuscular HGB Conc 35.5 g/dl (31.0-36.0); Mean Corpuscular Hemoglobin 31.3 pg (27.0-33.0); Mean Corpuscular Volume 88.1 fL (80.0-98.0); Mean Platelet Volume 10.1 fL (9.4-12.4); Monocytes Absolute Auto 0.8 X10*3/uL (0.1-1.2); Monocytes Percent Auto 5.5 % (2-11); Neutrophils Absolute Auto 11.8 x10*3/uL (2.0-8.3); Neutrophils Percent Auto 83.7 % (45-73); Platelet Count 290 X10*3/uL (160-400); Red Blood Count 5.12 X10*6/uL (4.60-5.80); Red Cell Distribution Width 12.4 % (11.0-16.0); White Blood Count 14.1 X10*3/uL (4.8-10.8)
[2021-11-13] MEDS: 0.9 % Sodium Chloride 1,000 ML 999 ML IV (16:54)
[2021-11-13] MEDS: metroNIDAZOLE 500 MG TABLET PO (16:56)
[2021-11-13] MEDS: Prochlorperazine Edisylate 10 MG/2 ML VIAL IVPUSH (16:56)
[2021-11-13] MEDS: LORazepam 2 MG/ML VIAL 1 MG IVPUSH (16:57)
[2021-11-13] MEDS: diphenhydrAMINE HCL 50 MG/ML VIAL 25 MG IVPUSH (16:57)
[2021-11-13] MEDS: Famotidine/PF 20 MG/2 ML VIAL IVPUSH (16:58)
[2021-11-13 17:08] LABS: Alanine Aminotransferase 24 U/L (0-40); Albumin Level 4.8 g/dL (3.5-5.0); Alkaline Phosphatase 121 U/L (39-117); Anion Gap 18 (12-20); Aspartate Amino Transferase 23 U/L (5-37); Bilirubin Total 1.3 mg/dL (0.0-1.0); Blood Urea Nitrogen 12 mg/dL (9-16); Calcium 10.2 mg/dL (8.4-10.2); Carbon Dioxide 24 mmol/L (22-29); Chloride 98 mmol/L (96-108); Creatinine Clr Calc Pharmacy 88.5; Estimated Glomerular Filt Rate > 60; Glucose Random 121 mg/dL (60-115); Potassium 3.2 mmol/L (3.3-5.1); Sodium 137 mmol/L (135-145)
[2021-11-13] MEDS: cefTRIAXone sodium 1 GM in 0.9 % Sodium Chloride 50 ML IV (17:45)
[2021-11-13 17:59] LABS: Appearance Urine HAZY; Color Urine YELLOW; Glucose Urine UA NEG (NEG); Leukocyte Esterase Urine 1+ (NEG); Nitrite Urine NEG (NEG); UACC Culture Trigger YES; Urine Blood TRACE (NEG); Urine Ketones >=80 MG/DL (NEG); Urine Protein 1+ MG/DL (NEG-TRACE)
[2021-11-13 18:10] LABS: Bacteria Urine 2+ /LPF; RBC Urine 0-2 /HPF (0)
[2021-11-13 18:35] VITALS: BP 122/71; PULSE 83; RESP 18; TEMP 36.9; O2SAT 98
[2021-11-13 19:08] LABS: Glucose, Whole Blood 131 mg/dL (60-115)
[2021-11-14 10:19] LABS: CT PCR NOT DETECTED (Not Detect.); NG PCR DETECTED (Not Detect.)
== END 2021-11-13 20:55 | disposition home or self-care (01) ==
PROVIDERS: Emergency Provider Internal Medicine
DX: R11.15 Cyclical vomiting syndrome unrelated to migraine (principal); K29.70 Gastritis, unspecified, without bleeding; A54.00 Gonococcal infection of lower genitourinary tract, unspecified
CPT/HCPCS: 36415; 80053; 81001; 82947; 85025; 87491; 87591; 96361; 96374; 96375; 99283; 99284; J0696; J1200; J2060

== ENCOUNTER 2022-05-27 18:45 | Emergency (ER) | payer MEDICARE, MEDICAID, SELFPAY ==
--- NOTE | ~2022-05-27 | XR_ITS ---
EXAMINATION: XR CHEST CLINICAL INFORMATION: Hematemesis. Vomiting. COMPARISON: Previous chest x-ray April 2006 TECHNIQUE: 2 views of the chest were obtained. FINDINGS: No significant abnormality is noted involving the heart, lungs, mediastinum, bony thorax or soft tissues. XR/XR chest 2V IMPRESSION: Unremarkable examination.
--- NOTE | ~2022-05-27 | CT_ITS ---
EXAMINATION: CT ABDOMEN AND PELVIS WITHOUT CONTRAST CLINICAL INFORMATION: Abdominal pain. COMPARISON: None TECHNIQUE: Multidetector volumetric imaging was performed from the superior aspect of the liver through the pubic symphysis. Sagittal and coronal reformatted images were obtained on the technologist's workstation. This CT examination was performed using dose optimization techniques as appropriate, variously including the following: *Automated exposure control *Adjustment of mA and/or kV according to patient size (this includes techniques or standardized protocols for targeted exams where dose is matched to indication/reason for exam; i.e. extremities or head) *Use of iterative reconstruction technique DLP: 361 mGy-cm FINDINGS: LUNG BASES: The visualized lung bases are unremarkable. LIVER, GALLBLADDER, AND BILIARY TREE: The liver is normal in size, shape, and attenuation. No focal hepatic lesion or biliary ductal dilatation is present. The gallbladder is unremarkable with no evidence of radiopaque gallstones, gallbladder wall thickening, or obvious pericholecystic inflammatory changes. PANCREAS: Unremarkable. SPLEEN: Unremarkable. ADRENAL GLANDS: Unremarkable. KIDNEYS AND URETERS: The kidneys are normal in size, shape, and attenuation. A 4 mm calculus at the left proximal ureter just distal to the ureteropelvic junction (at the level of the L3 vertebral body) produces moderate left hydroureteronephrosis with perinephric, periureteral, and peripelvic fat stranding. A 2 mm calculus is present within an upper pole calyx in the left kidney. There are 3 calculi in the right renal calyces measuring between 1 and 2 mm in diameter. No additional ureteral calculi. BLADDER: Unremarkable. GASTROINTESTINAL TRACT: The small and large bowel are unremarkable. The appendix is unremarkable. ABDOMINAL WALL: No significant hernia is appreciated. LYMPH NODES: Normal. VASCULAR: Unremarkable. PELVIC VISCERA: The prostate and seminal vesicles are unremarkable. OSSEOUS STRUCTURES: Mild degenerative disc disease in the lower lumbar spine with posterior disc protrusions at L3-L4, L4-L5, and L5-S1. Minimal arthrosis at the hips. CT/CT abdomen pelvis wo IV con IMPRESSION: 1. A 4 mm calculus in the left proximal ureter produces moderate left hydroureteronephrosis. 2. Additional small bilateral nonobstructing renal calculi. Fleischner guidelines were followed.
[2022-05-27 18:57] VITALS: BP 110/70; BP 124/84; PULSE 135; PULSE 85; RESP 18; TEMP 36.1; O2SAT 95; O2SAT 97; BMI 27.4
--- NOTE | 2022-05-27 19:01 | ED_ITS ---
HPI - Abdominal Pain General Chief Complaint: Abdominal Pain <ALVA Vuong - Last Filed: 05/27/22 19:04> Stated Complaint: abd pain, coffee ground emesis, ?gibleed <ALVA Vuong - Last Filed: 05/27/22 19:04> Time Seen by Provider: 05/27/22 21:05 <ALVA Vuong - Last Filed: 05/27/22 19:04> Source: patient <Dejon Galeano MD - Last Filed: 05/28/22 01:11> Mode of arrival: ambulatory <Dejon Galeano MD - Last Filed: 05/28/22 01:11> Limitations: no limitations <Dejon Galeano MD - Last Filed: 05/28/22 01:11> History of Present Illness HPI narrative: THIS IS A 42 YEARS OLD MAN PRESENTED TO THE EMERGENCY DEPARTMENT WITH A CHIEF COMPLAINT OF NAUSEA VOMITING ABDOMINAL PAIN COFFEE-GROUND EMESIS. HE STATES THAT HE HAS HISTORY OF DIABETES. HE HAS BEEN SEEN IN THIS EMERGENCY ROOM IN THE PAST FOR CYCLIC VOMITING. <Dejon Galeano MD - Last Filed: 05/28/22 01:11> MD elicited complaint: abdominal pain <Dejon Galeano MD - Last Filed: 05/28/22 01:11> Pertinent past history: none <Dejon Galeano MD - Last Filed: 05/28/22 01:11> Onset (ago): day(s) (1) <Dejon Galeano MD - Last Filed: 05/28/22 01:11> Pain Consistency: constant <Dejon Galeano MD - Last Filed: 05/28/22 01:11> Quality: cramping <Dejon Galeano MD - Last Filed: 05/28/22 01:11> Radiation: LLQ <Dejon Galeano MD - Last Filed: 05/28/22 01:11> Migration to: LLQ <Dejon Galeano MD - Last Filed: 05/28/22 01:11> Exacerbating factors: nothing <Dejon Galeano MD - Last Filed: 05/28/22 01:11> Relieving factors: nothing <Dejon Galeano MD - Last Filed: 05/28/22 01:11> Related Data Home Medications: Previous Rx's Medication Instructions Recorded omeprazole 20 mg capsule,delayed 20 mg PO BID 10 days #20 caps 10/19/21 release ondansetron 4 mg disintegrating 4 mg PO Q8-12H PRN nausea and 10/19/21 tablet vomiting 4 days #6 tabs metoclopramide HCl 5 mg tablet 5 mg PO DAILY PRN nausea and 10/20/21 (Reglan) vomiting #10 tabs ondansetron 4 mg disintegrating 4 mg PO Q6H PRN nausea and 11/12/21 tablet vomiting #10 tabs doxycycline hyclate 100 mg tablet 100 mg PO BID #14 tabs 11/13/21 lorazepam 1 mg tablet (Ativan) 1 mg PO TID PRN nausea and 11/13/21 vomiting #14 tabs metronidazole 500 mg tablet 500 mg PO BID 7 days #14 tabs 11/13/21 omeprazole 40 mg capsule,delayed 40 mg PO DAILY #20 caps 11/13/21 release naproxen 500 mg tablet (Naprosyn) 500 mg PO BID PRN PAIN #20 tabs 05/28/22 tamsulosin 0.4 mg capsule (Flomax) 0.4 mg PO DAILY #10 caps 05/28/22 <ALVA Vuong - Last Filed: 05/27/22 19:04> Allergies/Adverse Reactions: Allergies Allergy/AdvReac Type Severity Reaction Status Date / Time No Known Allergies [NKA] Allergy Mild NOT Unverified 02/28/20 15:28 APPLICABLE <ALVA Vuong - Last Filed: 05/27/22 19:04> Review of Systems Constitutional: Reports no additional constitutional complaints <Dejon Galeano MD - Last Filed: 05/28/22 01:11> Gastrointestinal: Reports nausea and Reports vomiting <Dejon Galeano MD - Last Filed: 05/28/22 01:11> Musculoskeletal: Reports no additional musculoskeletal complaints <Dejon Galeano MD - Last Filed: 05/28/22 01:11> [facility] Past Medical History Medical History: Medical History Cyclical vomiting Gastroparesis No known health problems <ALVA Vuong - Last Filed: 05/27/22 19:04> Social History Social History: Social History Alcohol intake: never Patient Tobacco Use Status: Never used Tobacco Substance Use Type: Marijuana Advance Directives: No Advance Directives Information Provided: No <ALVA Vuong - Last Filed: 05/27/22 19:04> Physical Exam ED Vital Signs: Vital Signs - 24 hr 05/27/22 18:57 05/27/22 20:46 05/27/22 21:54 Temperature 97.0 F 98.7 F 98.3 F Pulse Rate 85 85 81 Respiratory Rate 18 16 16 Blood Pressure 124/84 150/92 H 161/87 H Pulse Oximetry 97 98 99 Oxygen Delivery Method Room Air Room Air Room Air 05/28/22 00:00 Temperature 99.1 F Pulse Rate 85 Respiratory Rate 16 Blood Pressure 128/82 Pulse Oximetry 98 Oxygen Delivery Method Room Air BMI result Body Mass Index 27.4 <ALVA Vuong - Last Filed: 05/27/22 19:04> Vital Signs - 24 hr 05/27/22 18:57 05/27/22 20:46 05/27/22 21:54 Temperature 97.0 F 98.7 F 98.3 F Pulse Rate 85 85 81 Respiratory Rate 18 16 16 Blood Pressure 124/84 150/92 H 161/87 H Pulse Oximetry 97 98 99 Oxygen Delivery Method Room Air Room Air Room Air 05/28/22 00:00 Temperature 99.1 F Pulse Rate 85 Respiratory Rate 16 Blood Pressure 128/82 Pulse Oximetry 98 Oxygen Delivery Method Room Air BMI result Body Mass Index 27.4 <Dejon Galeano MD - Last Filed: 05/28/22 01:11> Const General: cooperative <Dejon Galeano MD - Last Filed: 05/28/22 01:11> Nutritional Appearance: average body habitus and well nourished <Dejon Galeano MD - Last Filed: 05/28/22 01:11> Orientation/consciousness: patient oriented x3 <Dejon Galeano MD - Last Filed: 05/28/22 01:11> Limitations: no limitations <Dejon Galeano MD - Last Filed: 05/28/22 01:11> HENMT Head: Yes normal to inspection <Dejon Galeano MD - Last Filed: 05/28/22 01:11> Ears: hearing grossly normal bilaterally <Dejon Galeano MD - Last Filed: 05/28/22 01:11> General nose exam: Normal external nose present <Dejon Galeano MD - Last Filed: 05/28/22 01:11> Face and sinus: Yes normal facial exam <Dejon Galeano MD - Last Filed: 05/28/22 01:11> Mouth: Normal oral and palatal mucosa present <Dejon Galeano MD - Last Filed: 05/28/22 01:11> Throat: Yes posterior oropharynx normal <Dejno Galeano MD - Last Filed: 05/28/22 01:11> Neck Neck: Yes normal visual inspection and Yes full ROM <Dejon Galeano MD - Last Filed: 05/28/22 01:11> Chest Chest palpation & inspection: normal inspection of the chest <Dejon Galeano MD - Last Filed: 05/28/22 01:11> Resp Effort & Inspection: normal respiratory effort <Dejon Galeano MD - Last Filed: 05/28/22 01:11> Auscultation: clear to auscultation bilaterally <Dejon Galeano MD - Last Filed: 05/28/22 01:11> Percussion: percussion normal <Dejon Galeano MD - Last Filed: 05/28/22 01:11> Cardio Jugular venous distension: no JVD <Dejon Galeano MD - Last Filed: 05/28/22 01:11> Rate: regular rate <Dejon Galeano MD - Last Filed: 05/28/22 01:11> Rhythm: regular rhythm <Dejon Galeano MD - Last Filed: 05/28/22 01:11> GI Inspection: Yes normal to inspection <Dejon Galeano MD - Last Filed: 05/28/22 01:11> Palpation (GI): Soft to palpation, not firm and nontender <Dejon Galeano MD - Last Filed: 05/28/22 01:11> Percussion: Yes normal to percussion <Dejon Galeano MD - Last Filed: 05/28/22 01:11> Rectal Exam - Male: Yes visual inspection normal, Yes normal sphincter tone and Yes heme negative stool <Dejon Galeano MD - Last Filed: 05/28/22 01:11> Skin General skin exam: no rashes or lesions noted <Dejon Galeano MD - Last Filed: 05/28/22 01:11> Lesions: no lesions <Dejon Galeano MD - Last Filed: 05/28/22 01:11> Rashes: no rashes <Dejon Galeano MD - Last Filed: 05/28/22 01:11> Wounds: no wounds <Dejon Galeano MD - Last Filed: 05/28/22 01:11> Neuro General: patient oriented x3 <Dejon Galeano MD - Last Filed: 05/28/22 01:11> Course Course Course Narrative: RME-19PM - 42yoM presenting to the ED c c/o of left sided abd pain x 2 days c associated subjective fevers, chills with associated nausea/vomiting coffee-ground emesis. Denies any alcohol usage. Denies any chest pain, shortness of breath, palpitations, diarrhea constipation, black or bloody stools or any other symptoms complaints or concerns at this time. Reports he has never had this in the past although has had gastritis in the past. Plan: Labs, UA, CXR, EKG, COVID and flu swab. Patient will be sent back to the waiting room for further evaluation treatment to the main ER. <ALVA Vuong - Last Filed: 05/27/22 19:04> Reevaluation(s) Reevaluation #1: felling better <Dejon Galeano MD - Last Filed: 05/28/22 01:11> Time: 23:59 <Dejon Galeano MD - Last Filed: 05/28/22 01:11> Reevaluation #2: better, creatinine down trending , 1.91 to 1.46 at this point will d/c the pt <Dejon Galeano MD - Last Filed: 05/28/22 01:11> Medical Decision Making Differential Diagnosis Differential Diagnoses: The differential diagnosis associated with the presentation includes <Dejon Galeano MD - Last Filed: 05/28/22 01:11> appendicitis/sbo/kidney staone <Dejon Galeano MD - Last Filed: 05/28/22 01:11> Admission/Observation Consideration of admission/observation: Escalation of care including admission/observation considered <Dejon Galeano MD - Last Filed: 05/28/22 01:11> Consult Healthcare Provider Management of the patient was discussed with: [employer]er Tech <Dejon Galeano MD - Last Filed: 05/28/22 01:11> Dr Camacho <Dejon Galeano MD - Last Filed: 05/28/22 01:11> Lab Data MDM Lab Attestation statement: I reviewed the patient's lab results. <Dejon Galeano MD - Last Filed: 05/28/22 01:11> Result Diagrams: : 05/27/22 21:27 05/27/22 23:51 <ALVA Vuong - Last Filed: 05/27/22 19:04> Labs: Lab Results 05/27/22 05/27/22 05/27/22 Range/Units 19:25 19:25 19:25 WBC 10.2 (4.8-10.8) X10*3/uL RBC 5.34 (4.60-5.80) X10*6/uL Hgb 16.1 (14.0-18.0) g/dl Hct 47.0 (42.0-52.0) % MCV 88.0 (80.0-98.0) fL MCH 30.1 (27.0-33.0) pg MCHC 34.3 (31.0-36.0) g/dl RDW 12.8 (11.0-16.0) % Plt Count 260 (160-400) X10*3/uL MPV 10.3 (9.4-12.4) fL Immature Gran % (Auto) 0.4 (0.0-0.4) % Neut % (Auto) 80.6 H (45-73) % Lymph % (Auto) 10.1 L (20-40) % Ritchie % (Auto) 8.4 (2-11) % Eos % (Auto) 0.1 (0-4) % Baso % (Auto) 0.4 (0-2) % Lymph # (Auto) 1.0 L (1.2-4.9) X10*3/uL Ritchie # (Auto) 0.9 (0.1-1.2) X10*3/uL Eos # (Auto) 0.0 (0.0-0.4) X10*3/uL Baso # (Auto) 0.0 (0.0-0.2) X10*3/uL Abs Immat Gran (auto) 0.04 H (0.00-0.03) X10*3/uL Absolute Neuts (auto) 8.2 (2.0-8.3) x10*3/uL Absolute Nucleated RBC 0.000 (0.0-0.012) X10*3/uL Nucleated RBC % (auto) 0.0 (0.0-0.2) /100WBC PT 11.6 (10.0-13.1) SEC INR 1.0 (0.9-1.1) Sodium 136 (135-145) mmol/L Potassium 4.3 D (3.3-5.1) mmol/L Chloride 97 (96-108) mmol/L Carbon Dioxide 27 (22-29) mmol/L Anion Gap 16 (12-20) BUN 16 (9-16) mg/dL Creatinine 1.91 H (0.5-1.4) mg/dL Estim Creat Clear Calc 45.5 Estimated GFR 39 Random Glucose 161 H (60-115) mg/dL Calcium 10.0 (8.4-10.2) mg/dL Magnesium 2.6 (1.6-2.6) mg/dL Total Bilirubin 1.2 H (0.0-1.0) mg/dL AST 23 (5-37) U/L ALT 30 (0-40) U/L Alkaline Phosphatase 183 H (39-117) U/L Total Protein 8.4 H (6.5-8.0) g/dL Albumin 5.0 (3.5-5.0) g/dL Urine Color Urine Appearance Urine pH (5.0-9.0) Ur Specific [place] (1.005-1.025) Urine Protein (Neg-Trace) mg/dL Urine Glucose (UA) (Negative) mg/dL Urine Ketones (Negative) mg/dL Urine Blood (Negative) Urine Nitrite (Negative) Ur Leukocyte Esterase (Negative) Urine RBC (0-2) /HPF Urine WBC (0-5) /HPF Ur Squamous Epith Cells (0-2) /HPF Urine Bacteria (None Seen) Hyaline Casts (0-2) /LPF Stool Occult Blood (NEGATIVE) Urine Opiates Screen (Not Detect) Urine Fentanyl Screen (Not Detect) Ur Barbiturates Screen (Not Detect) Ur Phencyclidine Scrn (Not Detect) Ur Amphetamines Screen (Not Detect) U Benzodiazepines Scrn (Not Detect) Urine Cocaine Screen (Not Detect) U Marijuana (THC) Screen (Not Detect) Ethyl Alcohol < 10 mg/dL COVID-19 (SKYLER) (Negative) COVID-19 Clin Com Influenza Type A (MELLISA) (Negative) Influenza Type B (MELLISA) (Negative) Influenza A & B Note 05/27/22 05/27/22 05/27/22 Range/Units 19:25 19:25 21:27 WBC 10.7 (4.8-10.8) X10*3/uL RBC 5.06 (4.60-5.80) X10*6/uL Hgb 15.1 (14.0-18.0) g/dl Hct 44.3 (42.0-52.0) % MCV 87.5 (80.0-98.0) fL MCH 29.8 (27.0-33.0) pg MCHC 34.1 (31.0-36.0) g/dl RDW 12.8 (11.0-16.0) % Plt Count 254 (160-400) X10*3/uL MPV 10.5 (9.4-12.4) fL Immature Gran % (Auto) 0.4 (0.0-0.4) % Neut % (Auto) 79.4 H (45-73) % Lymph % (Auto) 10.7 L (20-40) % Ritchie % (Auto) 9.0 (2-11) % Eos % (Auto) 0.1 (0-4) % Baso % (Auto) 0.4 (0-2) % Lymph # (Auto) 1.2 (1.2-4.9) X10*3/uL Ritchie # (Auto) 1.0 (0.1-1.2) X10*3/uL Eos # (Auto) 0.0 (0.0-0.4) X10*3/uL Baso # (Auto) 0.0 (0.0-0.2) X10*3/uL Abs Immat Gran (auto) 0.04 H (0.00-0.03) X10*3/uL Absolute Neuts (auto) 8.5 H (2.0-8.3) x10*3/uL Absolute Nucleated RBC 0.000 (0.0-0.012) X10*3/uL Nucleated RBC % (auto) 0.0 (0.0-0.2) /100WBC PT (10.0-13.1) SEC INR (0.9-1.1) Sodium (135-145) mmol/L Potassium (3.3-5.1) mmol/L Chloride (96-108) mmol/L Carbon Dioxide (22-29) mmol/L Anion Gap (12-20) BUN (9-16) mg/dL Creatinine (0.5-1.4) mg/dL Estim Creat Clear Calc Estimated GFR Random Glucose (60-115) mg/dL Calcium (8.4-10.2) mg/dL Magnesium (1.6-2.6) mg/dL Total Bilirubin (0.0-1.0) mg/dL AST (5-37) U/L ALT (0-40) U/L Alkaline Phosphatase (39-117) U/L Total Protein (6.5-8.0) g/dL Albumin (3.5-5.0) g/dL Urine Color Urine Appearance Urine pH (5.0-9.0) Ur Specific [place] (1.005-1.025) Urine Protein (Neg-Trace) mg/dL Urine Glucose (UA) (Negative) mg/dL Urine Ketones (Negative) mg/dL Urine Blood (Negative) Urine Nitrite (Negative) Ur Leukocyte Esterase (Negative) Urine RBC (0-2) /HPF Urine WBC (0-5) /HPF Ur Squamous Epith Cells (0-2) /HPF Urine Bacteria (None Seen) Hyaline Casts (0-2) /LPF Stool Occult Blood (NEGATIVE) Urine Opiates Screen (Not Detect) Urine Fentanyl Screen (Not Detect) Ur Barbiturates Screen (Not Detect) Ur Phencyclidine Scrn (Not Detect) Ur Amphetamines Screen (Not Detect) U Benzodiazepines Scrn (Not Detect) Urine Cocaine Screen (Not Detect) U Marijuana (THC) Screen (Not Detect) Ethyl Alcohol mg/dL COVID-19 (SKYLER) Negative (Negative) COVID-19 Clin Com See Note Influenza Type A (MELLISA) Negative (Negative) Influenza Type B (MELLISA) Negative (Negative) Influenza A & B Note See Note 05/27/22 05/27/22 05/27/22 Range/Units 21:27 21:27 21:27 WBC (4.8-10.8) X10*3/uL RBC (4.60-5.80) X10*6/uL Hgb (14.0-18.0) g/dl Hct (42.0-52.0) % MCV (80.0-98.0) fL MCH (27.0-33.0) pg MCHC (31.0-36.0) g/dl RDW (11.0-16.0) % Plt Count (160-400) X10*3/uL MPV (9.4-12.4) fL Immature Gran % (Auto) (0.0-0.4) % Neut % (Auto) (45-73) % Lymph % (Auto) (20-40) % Ritchie % (Auto) (2-11) % Eos % (Auto) (0-4) % Baso % (Auto) (0-2) % Lymph # (Auto) (1.2-4.9) X10*3/uL Ritchie # (Auto) (0.1-1.2) X10*3/uL Eos # (Auto) (0.0-0.4) X10*3/uL Baso # (Auto) (0.0-0.2) X10*3/uL Abs Immat Gran (auto) (0.00-0.03) X10*3/uL Absolute Neuts (auto) (2.0-8.3) x10*3/uL Absolute Nucleated RBC (0.0-0.012) X10*3/uL Nucleated RBC % (auto) (0.0-0.2) /100WBC PT (10.0-13.1) SEC INR (0.9-1.1) Sodium (135-145) mmol/L Potassium (3.3-5.1) mmol/L Chloride (96-108) mmol/L Carbon Dioxide (22-29) mmol/L Anion Gap (12-20) BUN (9-16) mg/dL Creatinine (0.5-1.4) mg/dL Estim Creat Clear Calc Estimated GFR Random Glucose (60-115) mg/dL Calcium (8.4-10.2) mg/dL Magnesium (1.6-2.6) mg/dL Total Bilirubin (0.0-1.0) mg/dL AST (5-37) U/L ALT (0-40) U/L Alkaline Phosphatase (39-117) U/L Total Protein (6.5-8.0) g/dL Albumin (3.5-5.0) g/dL Urine Color Yellow Urine Appearance Clear Urine pH 6.5 (5.0-9.0) Ur Specific [place] 1.020 (1.005-1.025) Urine Protein 100 (2+) H (Neg-Trace) mg/dL Urine Glucose (UA) 100 H (Negative) mg/dL Urine Ketones 15 (Negative) mg/dL Urine Blood Large (3+) H (Negative) Urine Nitrite Negative (Negative) Ur Leukocyte Esterase Small (1+) H (Negative) Urine RBC 11-20 H (0-2) /HPF Urine WBC 6-10 H (0-5) /HPF Ur Squamous Epith Cells 0-2 (0-2) /HPF Urine Bacteria None Seen (None Seen) Hyaline Casts 0-2 (0-2) /LPF Stool Occult Blood NEGATIVE (NEGATIVE) Urine Opiates Screen Not Detected (Not Detect) Urine Fentanyl Screen Not Detected (Not Detect) Ur Barbiturates Screen Not Detected (Not Detect) Ur Phencyclidine Scrn Not Detected (Not Detect) Ur Amphetamines Screen Not Detected (Not Detect) U Benzodiazepines Scrn Not Detected (Not Detect) Urine Cocaine Screen POSITIVE H (Not Detect) U Marijuana (THC) Screen POSITIVE H (Not Detect) Ethyl Alcohol mg/dL COVID-19 (SKYLER) (Negative) COVID-19 Clin Com Influenza Type A (MELLISA) (Negative) Influenza Type B (MELLISA) (Negative) Influenza A & B Note 05/27/22 Range/Units 23:51 WBC (4.8-10.8) X10*3/uL RBC (4.60-5.80) X10*6/uL Hgb (14.0-18.0) g/dl Hct (42.0-52.0) % MCV (80.0-98.0) fL MCH (27.0-33.0) pg MCHC (31.0-36.0) g/dl RDW (11.0-16.0) % Plt Count (160-400) X10*3/uL MPV (9.4-12.4) fL Immature Gran % (Auto) (0.0-0.4) % Neut % (Auto) (45-73) % Lymph % (Auto) (20-40) % Ritchie % (Auto) (2-11) % Eos % (Auto) (0-4) % Baso % (Auto) (0-2) % Lymph # (Auto) (1.2-4.9) X10*3/uL Ritchie # (Auto) (0.1-1.2) X10*3/uL Eos # (Auto) (0.0-0.4) X10*3/uL Baso # (Auto) (0.0-0.2) X10*3/uL Abs Immat Gran (auto) (0.00-0.03) X10*3/uL Absolute Neuts (auto) (2.0-8.3) x10*3/uL Absolute Nucleated RBC (0.0-0.012) X10*3/uL Nucleated RBC % (auto) (0.0-0.2) /100WBC PT (10.0-13.1) SEC INR (0.9-1.1) Sodium 138 (135-145) mmol/L Potassium 3.4 D (3.3-5.1) mmol/L Chloride 102 (96-108) mmol/L Carbon Dioxide 27 (22-29) mmol/L Anion Gap 12 (12-20) BUN 15 (9-16) mg/dL Creatinine 1.46 H (0.5-1.4) mg/dL Estim Creat Clear Calc 59.5 Estimated GFR 53 Random Glucose 99 (60-115) mg/dL Calcium 8.3 L D (8.4-10.2) mg/dL Magnesium (1.6-2.6) mg/dL Total Bilirubin (0.0-1.0) mg/dL AST (5-37) U/L ALT (0-40) U/L Alkaline Phosphatase (39-117) U/L Total Protein (6.5-8.0) g/dL Albumin (3.5-5.0) g/dL Urine Color Urine Appearance Urine pH (5.0-9.0) Ur Specific [place] (1.005-1.025) Urine Protein (Neg-Trace) mg/dL Urine Glucose (UA) (Negative) mg/dL Urine Ketones (Negative) mg/dL Urine Blood (Negative) Urine Nitrite (Negative) Ur Leukocyte Esterase (Negative) Urine RBC (0-2) /HPF Urine WBC (0-5) /HPF Ur Squamous Epith Cells (0-2) /HPF Urine Bacteria (None Seen) Hyaline Casts (0-2) /LPF Stool Occult Blood (NEGATIVE) Urine Opiates Screen (Not Detect) Urine Fentanyl Screen (Not Detect) Ur Barbiturates Screen (Not Detect) Ur Phencyclidine Scrn (Not Detect) Ur Amphetamines Screen (Not Detect) U Benzodiazepines Scrn (Not Detect) Urine Cocaine Screen (Not Detect) U Marijuana (THC) Screen (Not Detect) Ethyl Alcohol mg/dL COVID-19 (SKYLER) (Negative) COVID-19 Clin Com Influenza Type A (MELLISA) (Negative) Influenza Type B (MELLISA) (Negative) Influenza A & B Note <ALVA Vuong - Last Filed: 05/27/22 19:04> Lab Results 05/27/22 05/27/22 05/27/22 Range/Units 19:25 19:25 19:25 WBC 10.2 (4.8-10.8) X10*3/uL RBC 5.34 (4.60-5.80) X10*6/uL Hgb 16.1 (14.0-18.0) g/dl Hct 47.0 (42.0-52.0) % MCV 88.0 (80.0-98.0) fL MCH 30.1 (27.0-33.0) pg MCHC 34.3 (31.0-36.0) g/dl RDW 12.8 (11.0-16.0) % Plt Count 260 (160-400) X10*3/uL MPV 10.3 (9.4-12.4) fL Immature Gran % (Auto) 0.4 (0.0-0.4) % Neut % (Auto) 80.6 H (45-73) % Lymph % (Auto) 10.1 L (20-40) % Ritchie % (Auto) 8.4 (2-11) % Eos % (Auto) 0.1 (0-4) % Baso % (Auto) 0.4 (0-2) % Lymph # (Auto) 1.0 L (1.2-4.9) X10*3/uL Ritchie # (Auto) 0.9 (0.1-1.2) X10*3/uL Eos # (Auto) 0.0 (0.0-0.4) X10*3/uL Baso # (Auto) 0.0 (0.0-0.2) X10*3/uL Abs Immat Gran (auto) 0.04 H (0.00-0.03) X10*3/uL Absolute Neuts (auto) 8.2 (2.0-8.3) x10*3/uL Absolute Nucleated RBC 0.000 (0.0-0.012) X10*3/uL Nucleated RBC % (auto) 0.0 (0.0-0.2) /100WBC PT 11.6 (10.0-13.1) SEC INR 1.0 (0.9-1.1) Sodium 136 (135-145) mmol/L Potassium 4.3 D (3.3-5.1) mmol/L Chloride 97 (96-108) mmol/L Carbon Dioxide 27 (22-29) mmol/L Anion Gap 16 (12-20) BUN 16 (9-16) mg/dL Creatinine 1.91 H (0.5-1.4) mg/dL Estim Creat Clear Calc 45.5 Estimated GFR 39 Random Glucose 161 H (60-115) mg/dL Calcium 10.0 (8.4-10.2) mg/dL Magnesium 2.6 (1.6-2.6) mg/dL Total Bilirubin 1.2 H (0.0-1.0) mg/dL AST 23 (5-37) U/L ALT 30 (0-40) U/L Alkaline Phosphatase 183 H (39-117) U/L Total Protein 8.4 H (6.5-8.0) g/dL Albumin 5.0 (3.5-5.0) g/dL Urine Color Urine Appearance Urine pH (5.0-9.0) Ur Specific [place] (1.005-1.025) Urine Protein (Neg-Trace) mg/dL Urine Glucose (UA) (Negative) mg/dL Urine Ketones (Negative) mg/dL Urine Blood (Negative) Urine Nitrite (Negative) Ur Leukocyte Esterase (Negative) Urine RBC (0-2) /HPF Urine WBC (0-5) /HPF Ur Squamous Epith Cells (0-2) /HPF Urine Bacteria (None Seen) Hyaline Casts (0-2) /LPF Stool Occult Blood (NEGATIVE) Urine Opiates Screen (Not Detect) Urine Fentanyl Screen (Not Detect) Ur Barbiturates Screen (Not Detect) Ur Phencyclidine Scrn (Not Detect) Ur Amphetamines Screen (Not Detect) U Benzodiazepines Scrn (Not Detect) Urine Cocaine Screen (Not Detect) U Marijuana (THC) Screen (Not Detect) Ethyl Alcohol < 10 mg/dL COVID-19 (SKYLER) (Negative) COVID-19 Clin Com Influenza Type A (MELLISA) (Negative) Influenza Type B (MELLISA) (Negative) Influenza A & B Note 05/27/22 05/27/22 05/27/22 Range/Units 19:25 19:25 21:27 WBC 10.7 (4.8-10.8) X10*3/uL RBC 5.06 (4.60-5.80) X10*6/uL Hgb 15.1 (14.0-18.0) g/dl Hct 44.3 (42.0-52.0) % MCV 87.5 (80.0-98.0) fL MCH 29.8 (27.0-33.0) pg MCHC 34.1 (31.0-36.0) g/dl RDW 12.8 (11.0-16.0) % Plt Count 254 (160-400) X10*3/uL MPV 10.5 (9.4-12.4) fL Immature Gran % (Auto) 0.4 (0.0-0.4) % Neut % (Auto) 79.4 H (45-73) % Lymph % (Auto) 10.7 L (20-40) % Ritchie % (Auto) 9.0 (2-11) % Eos % (Auto) 0.1 (0-4) % Baso % (Auto) 0.4 (0-2) % Lymph # (Auto) 1.2 (1.2-4.9) X10*3/uL Ritchie # (Auto) 1.0 (0.1-1.2) X10*3/uL Eos # (Auto) 0.0 (0.0-0.4) X10*3/uL Baso # (Auto) 0.0 (0.0-0.2) X10*3/uL Abs Immat Gran (auto) 0.04 H (0.00-0.03) X10*3/uL Absolute Neuts (auto) 8.5 H (2.0-8.3) x10*3/uL Absolute Nucleated RBC 0.000 (0.0-0.012) X10*3/uL Nucleated RBC % (auto) 0.0 (0.0-0.2) /100WBC PT (10.0-13.1) SEC INR (0.9-1.1) Sodium (135-145) mmol/L Potassium (3.3-5.1) mmol/L Chloride (96-108) mmol/L Carbon Dioxide (22-29) mmol/L Anion Gap (12-20) BUN (9-16) mg/dL Creatinine (0.5-1.4) mg/dL Estim Creat Clear Calc Estimated GFR Random Glucose (60-115) mg/dL Calcium (8.4-10.2) mg/dL Magnesium (1.6-2.6) mg/dL Total Bilirubin (0.0-1.0) mg/dL AST (5-37) U/L ALT (0-40) U/L Alkaline Phosphatase (39-117) U/L Total Protein (6.5-8.0) g/dL Albumin (3.5-5.0) g/dL Urine Color Urine Appearance Urine pH (5.0-9.0) Ur Specific [place] (1.005-1.025) Urine Protein (Neg-Trace) mg/dL Urine Glucose (UA) (Negative) mg/dL Urine Ketones (Negative) mg/dL Urine Blood (Negative) Urine Nitrite (Negative) Ur Leukocyte Esterase (Negative) Urine RBC (0-2) /HPF Urine WBC (0-5) /HPF Ur Squamous Epith Cells (0-2) /HPF Urine Bacteria (None Seen) Hyaline Casts (0-2) /LPF Stool Occult Blood (NEGATIVE) Urine Opiates Screen (Not Detect) Urine Fentanyl Screen (Not Detect) Ur Barbiturates Screen (Not Detect) Ur Phencyclidine Scrn (Not Detect) Ur Amphetamines Screen (Not Detect) U Benzodiazepines Scrn (Not Detect) Urine Cocaine Screen (Not Detect) U Marijuana (THC) Screen (Not Detect) Ethyl Alcohol mg/dL COVID-19 (SKYLER) Negative (Negative) COVID-19 Clin Com See Note Influenza Type A (MELLISA) Negative (Negative) Influenza Type B (MELLISA) Negative (Negative) Influenza A & B Note See Note 05/27/22 05/27/22 05/27/22 Range/Units 21:27 21:27 21:27 WBC (4.8-10.8) X10*3/uL RBC (4.60-5.80) X10*6/uL Hgb (14.0-18.0) g/dl Hct (42.0-52.0) % MCV (80.0-98.0) fL MCH (27.0-33.0) pg MCHC (31.0-36.0) g/dl RDW (11.0-16.0) % Plt Count (160-400) X10*3/uL MPV (9.4-12.4) fL Immature Gran % (Auto) (0.0-0.4) % Neut % (Auto) (45-73) % Lymph % (Auto) (20-40) % Ritchie % (Auto) (2-11) % Eos % (Auto) (0-4) % Baso % (Auto) (0-2) % Lymph # (Auto) (1.2-4.9) X10*3/uL Ritchie # (Auto) (0.1-1.2) X10*3/uL Eos # (Auto) (0.0-0.4) X10*3/uL Baso # (Auto) (0.0-0.2) X10*3/uL Abs Immat Gran (auto) (0.00-0.03) X10*3/uL Absolute Neuts (auto) (2.0-8.3) x10*3/uL Absolute Nucleated RBC (0.0-0.012) X10*3/uL Nucleated RBC % (auto) (0.0-0.2) /100WBC PT (10.0-13.1) SEC INR (0.9-1.1) Sodium (135-145) mmol/L Potassium (3.3-5.1) mmol/L Chloride (96-108) mmol/L Carbon Dioxide (22-29) mmol/L Anion Gap (12-20) BUN (9-16) mg/dL Creatinine (0.5-1.4) mg/dL Estim Creat Clear Calc Estimated GFR Random Glucose (60-115) mg/dL Calcium (8.4-10.2) mg/dL Magnesium (1.6-2.6) mg/dL Total Bilirubin (0.0-1.0) mg/dL AST (5-37) U/L ALT (0-40) U/L Alkaline Phosphatase (39-117) U/L Total Protein (6.5-8.0) g/dL Albumin (3.5-5.0) g/dL Urine Color Yellow Urine Appearance Clear Urine pH 6.5 (5.0-9.0) Ur Specific [place] 1.020 (1.005-1.025) Urine Protein 100 (2+) H (Neg-Trace) mg/dL Urine Glucose (UA) 100 H (Negative) mg/dL Urine Ketones 15 (Negative) mg/dL Urine Blood Large (3+) H (Negative) Urine Nitrite Negative (Negative) Ur Leukocyte Esterase Small (1+) H (Negative) Urine RBC 11-20 H (0-2) /HPF Urine WBC 6-10 H (0-5) /HPF Ur Squamous Epith Cells 0-2 (0-2) /HPF Urine Bacteria None Seen (None Seen) Hyaline Casts 0-2 (0-2) /LPF Stool Occult Blood NEGATIVE (NEGATIVE) Urine Opiates Screen Not Detected (Not Detect) Urine Fentanyl Screen Not Detected (Not Detect) Ur Barbiturates Screen Not Detected (Not Detect) Ur Phencyclidine Scrn Not Detected (Not Detect) Ur Amphetamines Screen Not Detected (Not Detect) U Benzodiazepines Scrn Not Detected (Not Detect) Urine Cocaine Screen POSITIVE H (Not Detect) U Marijuana (THC) Screen POSITIVE H (Not Detect) Ethyl Alcohol mg/dL COVID-19 (SKYLER) (Negative) COVID-19 Clin Com Influenza Type A (MELLISA) (Negative) Influenza Type B (MELLISA) (Negative) Influenza A & B Note 05/27/22 Range/Units 23:51 WBC (4.8-10.8) X10*3/uL RBC (4.60-5.80) X10*6/uL Hgb (14.0-18.0) g/dl Hct (42.0-52.0) % MCV (80.0-98.0) fL MCH (27.0-33.0) pg MCHC (31.0-36.0) g/dl RDW (11.0-16.0) % Plt Count (160-400) X10*3/uL MPV (9.4-12.4) fL Immature Gran % (Auto) (0.0-0.4) % Neut % (Auto) (45-73) % Lymph % (Auto) (20-40) % [place] % (Auto) (2-11) % Eos % (Auto) (0-4) % Baso % (Auto) (0-2) % Lymph # (Auto) (1.2-4.9) X10*3/uL [place] # (Auto) (0.1-1.2) X10*3/uL Eos # (Auto) (0.0-0.4) X10*3/uL Baso # (Auto) (0.0-0.2) X10*3/uL Abs Immat Gran (auto) (0.00-0.03) X10*3/uL Absolute Neuts (auto) (2.0-8.3) x10*3/uL Absolute Nucleated RBC (0.0-0.012) X10*3/uL Nucleated RBC % (auto) (0.0-0.2) /100WBC PT (10.0-13.1) SEC INR (0.9-1.1) Sodium 138 (135-145) mmol/L Potassium 3.4 D (3.3-5.1) mmol/L Chloride 102 (96-108) mmol/L Carbon Dioxide 27 (22-29) mmol/L Anion Gap 12 (12-20) BUN 15 (9-16) mg/dL Creatinine 1.46 H (0.5-1.4) mg/dL Estim Creat Clear Calc 59.5 Estimated GFR 53 Random Glucose 99 (60-115) mg/dL Calcium 8.3 L D (8.4-10.2) mg/dL Magnesium (1.6-2.6) mg/dL Total Bilirubin (0.0-1.0) mg/dL AST (5-37) U/L ALT (0-40) U/L Alkaline Phosphatase (39-117) U/L Total Protein (6.5-8.0) g/dL Albumin (3.5-5.0) g/dL Urine Color Urine Appearance Urine pH (5.0-9.0) Ur Specific [place] (1.005-1.025) Urine Protein (Neg-Trace) mg/dL Urine Glucose (UA) (Negative) mg/dL Urine Ketones (Negative) mg/dL Urine Blood (Negative) Urine Nitrite (Negative) Ur Leukocyte Esterase (Negative) Urine RBC (0-2) /HPF Urine WBC (0-5) /HPF Ur Squamous Epith Cells (0-2) /HPF Urine Bacteria (None Seen) Hyaline Casts (0-2) /LPF Stool Occult Blood (NEGATIVE) Urine Opiates Screen (Not Detect) Urine Fentanyl Screen (Not Detect) Ur Barbiturates Screen (Not Detect) Ur Phencyclidine Scrn (Not Detect) Ur Amphetamines Screen (Not Detect) U Benzodiazepines Scrn (Not Detect) Urine Cocaine Screen (Not Detect) U Marijuana (THC) Screen (Not Detect) Ethyl Alcohol mg/dL COVID-19 (SKYLER) (Negative) COVID-19 Clin Com Influenza Type A (MELLISA) (Negative) Influenza Type B (MELLISA) (Negative) Influenza A & B Note <Dejon Galeano MD - Last Filed: 05/28/22 01:11> Independent Interpretation I performed an independent interpretation of an: CT Scan <Dejon Galeano MD - Last Filed: 05/28/22 01:11> Interpretation: the right renal calyces measuring between 1 and 2 mm in diameter. No additional ureteral calculi. BLADDER: Unremarkable.? GASTROINTESTINAL TRACT: The small and large bowel are unremarkable. The appendix is unremarkable.? ABDOMINAL WALL: No significant hernia is appreciated.? LYMPH NODES: Normal. VASCULAR: Unremarkable. PELVIC VISCERA: The prostate and seminal vesicles are unremarkable.? OSSEOUS STRUCTURES: Mild degenerative disc disease in the lower lumbar spine with posterior disc protrusions at L3-L4, L4-L5, and L5-S1. Minimal arthrosis at the hips.? CT/CT abdomen pelvis wo IV con IMPRESSION: 1.? A 4 mm calculus in the left proximal ureter produces moderate left hydroureteronephrosis. 2.? Additional small bilateral nonobstructing renal calculi. ? Fleischner guidelines were followed. Dictated By: n <Dejon Galeano MD - Last Filed: 05/28/22 01:11> Medications Administered Discontinued Medications Generic Name Dose Route Start Last Admin Trade Name Freq PRN Reason Stop Dose Admin Sodium Chloride 1,000 mls @ 999 mls/hr 05/27/22 21:15 05/28/22 00:36 Ns IVCONT 05/27/22 22:15 Infused .Q1H1M ARIK Infusion Sodium Chloride 1,000 mls @ 999 mls/hr 05/27/22 21:15 05/28/22 00:36 Ns IVCONT 05/27/22 22:15 Infused .Q1H1M ARIK Infusion Ketorolac Tromethamine 15 mg 05/27/22 23:20 05/27/22 23:39 Ketorolac Tromethamine 15 Mg/Ml Vial IVPUSH 05/27/22 23:21 15 mg ONCE ONE Administration Ondansetron HCl 4 mg 05/27/22 21:15 05/27/22 21:21 Ondansetron Hcl 4 Mg/2 Ml Vial IVPUSH 05/27/22 21:16 4 mg ONCE ONE Administration <ALVA Vuong - Last Filed: 05/27/22 19:04> Medications Administered Discontinued Medications Generic Name Dose Route Start Last Admin Trade Name Freq PRN Reason Stop Dose Admin Sodium Chloride 1,000 mls @ 999 mls/hr 05/27/22 21:15 05/28/22 00:36 Ns IVCONT 05/27/22 22:15 Infused .Q1H1M ARIK Infusion Sodium Chloride 1,000 mls @ 999 mls/hr 05/27/22 21:15 05/28/22 00:36 Ns IVCONT 05/27/22 22:15 Infused .Q1H1M ARIK Infusion Ketorolac Tromethamine 15 mg 05/27/22 23:20 05/27/22 23:39 Ketorolac Tromethamine 15 Mg/Ml Vial IVPUSH 05/27/22 23:21 15 mg ONCE ONE Administration Ondansetron HCl 4 mg 05/27/22 21:15 05/27/22 21:21 Ondansetron Hcl 4 Mg/2 Ml Vial IVPUSH 05/27/22 21:16 4 mg ONCE ONE Administration <Dejon Galeano MD - Last Filed: 05/28/22 01:11> Discharge Plan Discharge Clinical Impression: Renal colic on left side <ALVA Vuong - Last Filed: 05/27/22 19:04> Patient Disposition: Home, Self-Care <ALVA Vuong - Last Filed: 05/27/22 19:04> Instructions: Renal Colic (ED) <ALVA Vuong - Last Filed: 05/27/22 19:04> Prescriptions: New tamsulosin [Flomax] 0.4 mg capsule 0.4 mg PO DAILY Qty: 10 0RF naproxen [Naprosyn] 500 mg tablet 500 mg PO BID PRN (Reason: PAIN) Qty: 20 0RF No Action metoclopramide HCl [Reglan] 5 mg tablet 5 mg PO DAILY PRN (Reason: nausea and vomiting) Qty: 10 0RF ondansetron 4 mg tablet,disintegrating 4 mg PO Q6H PRN (Reason: nausea and vomiting) Qty: 10 0RF lorazepam [Ativan] 1 mg tablet 1 mg PO TID PRN (Reason: nausea and vomiting) Qty: 14 0RF metronidazole 500 mg tablet 500 mg PO BID 7 Days Qty: 14 0RF doxycycline hyclate 100 mg tablet 100 mg PO BID Qty: 14 0RF omeprazole 40 mg capsule,delayed release(DR/EC) 40 mg PO DAILY Qty: 20 0RF ondansetron 4 mg tablet,disintegrating 4 mg PO Q8-12H PRN (Reason: nausea and vomiting) 4 Days Qty: 6 0RF omeprazole 20 mg capsule,delayed release(DR/EC) 20 mg PO BID 10 Days Qty: 20 0RF <ALVA Vuong - Last Filed: 05/27/22 19:04> Referrals: Dino Rivera MD [Physician] - 5 days <ALVA Vuong - Last Filed: 05/27/22 19:04> Interventions: ED Discharge Assessment Last Done: 05/28/22 00:53 <ALVA Vuong - Last Filed: 05/27/22 19:04> Discharge Date/Time: 05/28/22 00:54 <ALVA Vuong - Last Filed: 05/27/22 19:04>
--- NOTE | 2022-05-27 19:03 | ECG_ITS ---
Test Reason : ABD PAIN Blood Pressure : / mmHG Vent. Rate : 074 BPM Atrial Rate : 074 BPM P-R Int : 116 ms QRS Dur : 088 ms QT Int : 370 ms P-R-T Axes : 067 059 055 degrees QTc Int : 410 ms Normal sinus rhythm Minimal voltage criteria for LVH, may be normal variant ( Sokolow-Cruz ) Borderline ECG No previous ECGs available Referred By: Shanice Murillo Electronically Signed By:CAMERON BRADY
[2022-05-27 19:34] LABS: MANUAL DIFF FLAG NO
[2022-05-27 19:35] LABS: Basophils Percent Auto 0.4 % (0-2); Eosinophils Percent Auto 0.1 % (0-4); Hemoglobin 16.1 g/dl (14.0-18.0); Imm Gran Abs Auto 0.04 X10*3/uL (0.00-0.03); Imm Gran Pct Auto 0.4 % (0.0-0.4); Lymphocytes Percent Auto 10.1 % (20-40); Mean Corpuscular HGB Conc 34.3 g/dl (31.0-36.0); Mean Corpuscular Hemoglobin 30.1 pg (27.0-33.0); Mean Platelet Volume 10.3 fL (9.4-12.4); Monocytes Absolute Auto 0.9 X10*3/uL (0.1-1.2); Monocytes Percent Auto 8.4 % (2-11); Neutrophils Absolute Auto 8.2 x10*3/uL (2.0-8.3); Neutrophils Percent Auto 80.6 % (45-73); Platelet Count 260 X10*3/uL (160-400); Red Blood Count 5.34 X10*6/uL (4.60-5.80); Red Cell Distribution Width 12.8 % (11.0-16.0); White Blood Count 10.2 X10*3/uL (4.8-10.8)
[2022-05-27 19:46] LABS: Prothrombin Time 11.6 SEC (10.0-13.1)
[2022-05-27 19:58] LABS: Alanine Aminotransferase 30 U/L (0-40); Alkaline Phosphatase 183 U/L (39-117); Anion Gap 16 (12-20); Aspartate Amino Transferase 23 U/L (5-37); Bilirubin Total 1.2 mg/dL (0.0-1.0); Blood Urea Nitrogen 16 mg/dL (9-16); Carbon Dioxide 27 mmol/L (22-29); Chloride 97 mmol/L (96-108); Creatinine Clr Calc Pharmacy 45.5; Estimated Glomerular Filt Rate 39; Ethanol < 10 mg/dL; Glucose Random 161 mg/dL (60-115); Magnesium 2.6 mg/dL (1.6-2.6); Potassium 4.3 mmol/L (3.3-5.1); Sodium 136 mmol/L (135-145); Total Protein 8.4 g/dL (6.5-8.0)
[2022-05-27 20:14] LABS: COVID-19 Test Negative (Negative); IDNOW Serial# 16C4AD1C; IDNOW Serial# BCCEAD1C; Influenza A Negative (Negative); Influenza B2 Negative (Negative)
[2022-05-27 20:46] VITALS: BP 150/92; PULSE 85; RESP 16; TEMP 37.1; O2SAT 98
[2022-05-27] MEDS: ondansetron HCL 4 MG/2 ML VIAL IVPUSH (21:21)
[2022-05-27] MEDS: 0.9 % Sodium Chloride 1,000 ML 999 ML IVCONT ×2 (21:22)
[2022-05-27 21:33] LABS: MANUAL DIFF FLAG NO
[2022-05-27 21:37] LABS: Basophils Percent Auto 0.4 % (0-2); Eosinophils Percent Auto 0.1 % (0-4); Hematocrit 44.3 % (42.0-52.0); Hemoglobin 15.1 g/dl (14.0-18.0); Imm Gran Abs Auto 0.04 X10*3/uL (0.00-0.03); Imm Gran Pct Auto 0.4 % (0.0-0.4); Lymphocytes Absolute Auto 1.2 X10*3/uL (1.2-4.9); Lymphocytes Percent Auto 10.7 % (20-40); Mean Corpuscular HGB Conc 34.1 g/dl (31.0-36.0); Mean Corpuscular Hemoglobin 29.8 pg (27.0-33.0); Mean Corpuscular Volume 87.5 fL (80.0-98.0); Mean Platelet Volume 10.5 fL (9.4-12.4); Neutrophils Absolute Auto 8.5 x10*3/uL (2.0-8.3); Neutrophils Percent Auto 79.4 % (45-73); Platelet Count 254 X10*3/uL (160-400); Red Blood Count 5.06 X10*6/uL (4.60-5.80); Red Cell Distribution Width 12.8 % (11.0-16.0); White Blood Count 10.7 X10*3/uL (4.8-10.8)
[2022-05-27 21:40] LABS: Appearance Urine Clear; Color Urine Yellow; Glucose Urine UA 100 mg/dL (Negative); Leukocyte Esterase Urine Small (1+) (Negative); Nitrite Urine Negative (Negative); PH 6.5 (5.0-9.0); UMIC TRIGGER UACC YES; Urine Blood Large (3+) (Negative); Urine Ketones 15 mg/dL (Negative); Urine Protein 100 (2+) mg/dL (Neg-Trace)
[2022-05-27 21:41] LABS: OBS Int Ctl Valid YES; OBS1 NEGATIVE (NEGATIVE)
[2022-05-27 21:43] LABS: Bacteria Urine None Seen (None Seen); Hyaline Casts Urine 0-2 /LPF (0-2); Squamous Epithelial Cell Urine 0-2 /HPF (0-2); UACC Culture Trigger YES
[2022-05-27 21:46] LABS: Amphetamine Screen Urine Not Detected (Not Detect); Barbiturates, Urine Not Detected (Not Detect); Benzodiazepines Screen Urine Not Detected (Not Detect); Cannabinoid Screen Urine POSITIVE (Not Detect); Cocaine Screen Urine POSITIVE (Not Detect); Fentanyl, urine Not Detected (Not Detect); Opiate Screen Urine Not Detected (Not Detect); Phencyclidine Screen Urine Not Detected (Not Detect)
[2022-05-27 21:54] VITALS: BP 161/87; PULSE 81; RESP 16; TEMP 36.8; O2SAT 99
--- NOTE | 2022-05-27 23:36 | PC.NURSE ---
Pt sleeping at this time, respirations regular.
[2022-05-27] MEDS: Ketorolac Tromethamine 15 MG/ML VIAL IVPUSH (23:39)
[2022-05-28] VITALS: BP 128/82; PULSE 85; RESP 16; TEMP 37.3; O2SAT 98
[2022-05-28 00:39] LABS: Anion Gap 12 (12-20); Blood Urea Nitrogen 15 mg/dL (9-16); Calcium 8.3 mg/dL (8.4-10.2); Carbon Dioxide 27 mmol/L (22-29); Chloride 102 mmol/L (96-108); Creatinine Clr Calc Pharmacy 59.5; Estimated Glomerular Filt Rate 53; Glucose Random 99 mg/dL (60-115); Potassium 3.4 mmol/L (3.3-5.1); Sodium 138 mmol/L (135-145)
== END 2022-05-28 00:54 | disposition home or self-care (01) ==
PROVIDERS: Physician Assistant Medical; Emergency Provider Emergency Medicine
DX: N23 Unspecified renal colic (principal); R11.2 Nausea with vomiting, unspecified; R50.9 Fever, unspecified; Z20.822 Contact with and (suspected) exposure to COVID-19; Z79.899 Other long term (current) drug therapy
CPT/HCPCS: 36415; 71046; 74176; 80048; 80053; 80307; 81001; 82077; 82272; 83735; 85025; 85610; 87086; 87502; 87635; 93005; 96361; 96374; 96375; 99284; J1885; J2405

== ENCOUNTER 2022-06-10 02:02 | Emergency (ER) | payer MEDICARE, MEDICAID, SELFPAY ==
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
[2022-06-10 02:04] VITALS: BP 163/70; PULSE 123; RESP 20; TEMP 36.7; O2SAT 98; BMI 24.0
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
[2022-06-10] MEDS: 0.9 % Sodium Chloride 1,000 ML 999 ML IV (02:55)
[2022-06-10 02:56] LABS: MANUAL DIFF FLAG NO
[2022-06-10 02:57] VITALS: BP 181/107; PULSE 102; RESP 14; O2SAT 100
[2022-06-10 02:58] LABS: Basophils Percent Auto 0.4 % (0-2); Eosinophils Percent Auto 0.3 % (0-4); Hemoglobin 13.1 g/dl (14.0-18.0); Imm Gran Abs Auto 0.03 X10*3/uL (0.00-0.03); Imm Gran Pct Auto 0.4 % (0.0-0.4); Lymphocytes Absolute Auto 1.1 X10*3/uL (1.2-4.9); Lymphocytes Percent Auto 14.5 % (20-40); Mean Corpuscular HGB Conc 34.5 g/dl (31.0-36.0); Mean Corpuscular Hemoglobin 30.3 pg (27.0-33.0); Mean Platelet Volume 10.1 fL (9.4-12.4); Monocytes Absolute Auto 0.4 X10*3/uL (0.1-1.2); Monocytes Percent Auto 5.9 % (2-11); Neutrophils Absolute Auto 5.9 x10*3/uL (2.0-8.3); Neutrophils Percent Auto 78.5 % (45-73); Platelet Count 230 X10*3/uL (160-400); Red Blood Count 4.32 X10*6/uL (4.60-5.80); Red Cell Distribution Width 12.5 % (11.0-16.0); White Blood Count 7.5 X10*3/uL (4.8-10.8)
[2022-06-10 03:12] LABS: Alanine Aminotransferase 21 U/L (0-40); Albumin Level 4.3 g/dL (3.5-5.0); Alkaline Phosphatase 144 U/L (39-117); Anion Gap 12 (12-20); Aspartate Amino Transferase 19 U/L (5-37); Bilirubin Direct < 0.2 mg/dL (0.0-0.5); Bilirubin Total 0.4 mg/dL (0.0-1.0); Blood Urea Nitrogen 9 mg/dL (9-16); Calcium 9.4 mg/dL (8.4-10.2); Carbon Dioxide 29 mmol/L (22-29); Chloride 104 mmol/L (96-108); Creatinine Clr Calc Pharmacy 83.9; Estimated Glomerular Filt Rate > 60; Glucose Random 188 mg/dL (60-115); Lipase 64 U/L (8-78); Potassium 3.2 mmol/L (3.3-5.1); Sodium 142 mmol/L (135-145); Total Protein 6.9 g/dL (6.5-8.0)
[2022-06-10] MEDS: iohexoL 350 MG/ML 100 ML INFUS..BTL IV (03:32)
[2022-06-10] MEDS: Potassium Chloride Packet 20 MEQ PACKET 40 MEQ PO (03:52)
[2022-06-10 04:02] LABS: Appearance Urine Clear; Color Urine Yellow; Glucose Urine UA 250 mg/dL (Negative); Leukocyte Esterase Urine Negative (Negative); Nitrite Urine Negative (Negative); PH 7.5 (5.0-9.0); Urine Blood Negative (Negative); Urine Ketones Negative (Negative); Urine Protein Negative (Neg-Trace)
[2022-06-10 04:18] LABS: Amphetamine Screen Urine Not Detected (Not Detect); Barbiturates, Urine Not Detected (Not Detect); Benzodiazepines Screen Urine Not Detected (Not Detect); Cannabinoid Screen Urine POSITIVE (Not Detect); Cocaine Screen Urine POSITIVE (Not Detect); Fentanyl, urine Not Detected (Not Detect); Opiate Screen Urine Not Detected (Not Detect); Phencyclidine Screen Urine Not Detected (Not Detect)
[2022-06-10 04:43] VITALS: BP 137/94; PULSE 84; TEMP 36.8; O2SAT 99
[2022-06-10 04:48] LABS: Basophils Percent Auto 0.4 % (0-2); Eosinophils Percent Auto 0.3 % (0-4); Hematocrit 36.8 % (42.0-52.0); Hemoglobin 12.6 g/dl (14.0-18.0); Imm Gran Abs Auto 0.02 X10*3/uL (0.00-0.03); Imm Gran Pct Auto 0.3 % (0.0-0.4); Lymphocytes Absolute Auto 1.3 X10*3/uL (1.2-4.9); MANUAL DIFF FLAG NO; Mean Corpuscular HGB Conc 34.2 g/dl (31.0-36.0); Mean Corpuscular Hemoglobin 30.3 pg (27.0-33.0); Mean Corpuscular Volume 88.5 fL (80.0-98.0); Mean Platelet Volume 10.3 fL (9.4-12.4); Monocytes Absolute Auto 0.5 X10*3/uL (0.1-1.2); Monocytes Percent Auto 6.9 % (2-11); Neutrophils Absolute Auto 5.2 x10*3/uL (2.0-8.3); Neutrophils Percent Auto 74.1 % (45-73); Platelet Count 230 X10*3/uL (160-400); Red Blood Count 4.16 X10*6/uL (4.60-5.80); Red Cell Distribution Width 12.6 % (11.0-16.0)
[2022-06-10 06:31] VITALS: BP 146/99; PULSE 80; RESP 13; TEMP 36.9; O2SAT 100
== END 2022-06-10 06:54 | disposition home or self-care (01) ==
PROVIDERS: Emergency Provider Emergency Medicine
DX: S31.134A Puncture wound of abdominal wall without foreign body, left lower quadrant without penetration into peritoneal cavity, initial encounter (principal); X99.1XXA Assault by knife, initial encounter; F12.90 Cannabis use, unspecified, uncomplicated; Y93.9 Activity, unspecified; Y92.9 Unspecified place or not applicable; Y99.9 Unspecified external cause status; Z79.899 Other long term (current) drug therapy
CPT/HCPCS: 12001; 36415; 74177; 80048; 80076; 80307; 81003; 83690; 85025; 96360; 99284; Q9967